=== PATIENT | female | born 1940 ===

== ENCOUNTER 2018-02-18 14:01 | Inpatient (IN) | payer MEDICARE, MEDICAID ==
[2018-02-18 14:01] VITALS: BMI 24.1
[2018-02-18] MEDS ORDERED: Lidocaine Hydrochloride 10 ML INJ ONE (14:08)
[2018-02-18] MEDS ORDERED: Morphine 4 MG/ML VIAL ONE (14:09)
[2018-02-18] MEDS ORDERED: Iodixanol 320 MG/ML 100 ML BOTTLE IV ONE (14:11)
[2018-02-18 14:13] LABS: BASO % 0.2 % (0.0-2.0); EOS # 0.1 K/uL (0.0-0.7); EOS % 1.2 % (0.0-4.0); HEMOGLOBIN 13.2 g/dL (11.0-16.0); LYMPH # 3.1 K/uL (1.0-4.3); LYMPH % 30.9 % (20.0-40.0); MEAN CELL VOLUME 86.7 fL (81.0-99.0); MEAN CORPUSCULAR HEMOGLOBIN 29.5 pg (27.0-31.0); MEAN PLATELET VOLUME 9.1 fL (7.2-11.7); MONO # 0.9 K/uL (0.0-0.8); MONO % 8.5 % (0.0-10.0); NEUT % 59.2 % (50.0-75.0); NRBC % 0.2 % (0.0-2.0); RBC 4.48 Mil/uL (3.80-5.20); RED CELL DISTRIBUTION WIDTH 13.2 % (11.5-14.5); WHITE BLOOD COUNT 10.1 K/uL (4.8-10.8)
--- NOTE | 2018-02-18 14:20 | C.PDOC ---
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 Patient was given Aspirin 324 mg PO by EMS. Upon arrival, patient is complaining of 10/10 chest pain, center of chest, no radiation. Patient states that she has associated diaphoresis and SOB. Patient has family history of UT. Of note, code heart was activated at 13:56. Time Seen by Provider: 02/18/18 14:18 Chief Complaint (Nursing): Chest Pain History Per: Patient History/Exam Limitations: no limitations Onset/Duration Of Symptoms: Hrs Current Symptoms Are (Timing): Still Present Severity: Moderate Past Medical History Reviewed: Historical Data, Nursing Documentation, Vital Signs Vital Signs: Last Vital Signs Temp 97.6 F 02/19/18 08:00 Pulse 53 L 02/19/18 09:00 Resp 16 02/19/18 09:00 BP 128/52 L 02/19/18 08:53 Pulse Ox 99 02/19/18 09:00 - Medical History PMH: HTN Denies: Depression, Chronic Kidney Disease Other Surgeries: Hx of surgeries Family History: States: No Known Family Hx - Social History Hx Alcohol Use: No Hx Substance Use: No - Immunization History Hx Tetanus Toxoid Vaccination: No Hx Influenza Vaccination: Yes Hx Pneumococcal Vaccination: No Review Of Systems Except As Marked, All Systems Reviewed And Found Negative. Constitutional: Negative for: Fever, Chills Cardiovascular: Positive for: Chest Pain. Negative for: Palpitations Respiratory: Positive for: Shortness of Breath Physical Exam - Physical Exam Appears: Other (clutching at chest) Skin: Normal Color, Warm, Dry Head: Atraumatic, Normacephalic Eye(s): bilateral: Normal Inspection, PERRL, EOMI Nose: Normal Oral Mucosa: Moist Neck: Supple Chest: Symmetrical Cardiovascular: Rhythm Regular Respiratory: Normal Breath Sounds, No Rales, No Rhonchi, No Wheezing Gastrointestinal/Abdominal: Normal Exam, Soft, No Tenderness, No Guarding, No Rebound Neurological/Psych: Oriented x3, Normal Speech ED Course And Treatment - Laboratory Results Result Diagrams: 02/19/18 06:21 02/19/18 06:14 ECG: Interpreted By Me, Viewed By Me ECG Rhythm: Sinus Rhythm Interpretation Of ECG: NSR with ST elevations in leads II,III, and avF, and reciprocal changes in leads and V2, STEMI Rate From EC O2 Sat by Pulse Oximetry: 100 (RA) Pulse Ox Interpretation: Normal Medical Decision Making Medical Decision Making: Plan: --Labs --EKG --CXR Updates: Patient was treated with Morphine IV. Patient rates the pain 01/03. 14:[address] Sorensen, senior it auditor. Dr. Sorensen recommends ordering Heparin 5,000 units and cardiac cath labs. Orders have been placed. Disposition - Disposition Disposition Time: 14:05 Condition: GOOD - Clinical Impression Clinical Impression: STEMI (ST elevation myocardial infarction) - Scribe Statement The provider has reviewed the documentation as recorded by the Sangitaibe Ghada Cruz Provider Attestation: All medical record entries made by the Sangitaibe were at my direction and personally dictated by me. I have reviewed the chart and agree that the record accurately reflects my personal performance of the history, physical exam, medical decision making, and the department course for this patient. I have also personally directed, reviewed, and agree with the discharge instructions and disposition.
[2018-02-18] MEDS ORDERED: Verapamil 2 ML ONE (14:25)
[2018-02-18] MEDS ORDERED: Nitroglycerin 50mg in D5W 50 MG/250 ML BOTTLE IV ONE (14:26)
[2018-02-18 14:29] LABS: INR 0.9; PROTHROMBIN TIME 10.2 SECONDS (9.7-12.2)
[2018-02-18 14:31] LABS: ALB/GLOB RATIO 1.2 (1.0-2.1); ALT/SGPT 35 U/L (9-52); AST/SGOT 35 U/L (14-36); BLOOD UREA NITROGEN 18 mg/dL (7-17); CALCIUM 9.7 mg/dl (8.6-10.4); GFR NON-AFRICAN AMERICAN > 60
[2018-02-18] MEDS ORDERED: Midazolam 2 MG/2 ML VIAL ONE (14:41)
[2018-02-18] MEDS ORDERED: Eptifibatide 20 mg/10mL Inj IVP ONE (14:48)
--- NOTE | 2018-02-18 15:35 | RAD ---
Date of service: 02/18/2018 PROCEDURE: CHEST RADIOGRAPH, 1 VIEW HISTORY: chest pain COMPARISON: None available. FINDINGS: LUNGS: No consolidation. Inspiration is shallow. PLEURA: No pneumothorax or pleural fluid seen. CARDIOVASCULAR: Shallow inspiration accentuating heart size. Study rotated towards the right as well. Atherosclerotic vascular calcifications present. No gross pulmonary venous congestion appreciated. OSSEOUS STRUCTURES: No significant abnormalities. VISUALIZED UPPER ABDOMEN: Normal. OTHER FINDINGS: None. IMPRESSION: Shallow lung inspiration. Limiting assessment of heart size. No consolidation or gross effusion
--- NOTE | 2018-02-18 15:55 | CP.PCM.HP ---
<Carmine Rangel - Last Filed: 02/18/18 17:18> Meds Allergies/Adverse Reactions: Allergies Allergy/AdvReac Type Severity Reaction Status Date / Time No Known Allergies Allergy Verified 02/18/18 14:09 Results - Vital Signs Recent Vital Signs: Last Vital Signs Temp 98 F 02/18/18 14:05 Pulse 63 02/18/18 14:05 Resp 18 02/18/18 14:05 BP 130/70 02/18/18 14:05 Pulse Ox 100 02/18/18 14:59 - Labs Result Diagrams: 02/18/18 14:09 02/18/18 14:09 Labs: Laboratory Results - last 24 hr 02/18/18 02/18/18 02/18/18 14:09 14:09 14:09 WBC 10.1 RBC 4.48 Hgb 13.2 Hct 38.9 MCV 86.7 MCH 29.5 MCHC 34.0 RDW 13.2 Plt Count 286 MPV 9.1 Neut % (Auto) 59.2 Lymph % (Auto) 30.9 [place] % (Auto) 8.5 Eos % (Auto) 1.2 Baso % (Auto) 0.2 Neut # (Auto) 6.0 Lymph # (Auto) 3.1 [place] # (Auto) 0.9 H Eos # (Auto) 0.1 Baso # (Auto) 0.0 PT INR APTT Sodium 138 Potassium 4.2 Chloride 103 Carbon Dioxide 23 Anion Gap 17 BUN 18 H Creatinine 0.6 L Est GFR ( Amer) > 60 Est GFR (Non-Af Amer) > 60 Random Glucose 214 H Calcium 9.7 Total Bilirubin 0.5 AST 35 ALT 35 Alkaline Phosphatase 128 H Troponin I Total Protein 7.2 Albumin 4.0 Globulin 3.2 Albumin/Globulin Ratio 1.2 Blood Type O POSITIVE Antibody Screen Negative 02/18/18 02/18/18 14:10 14:17 WBC RBC Hgb Hct MCV MCH MCHC RDW Plt Count MPV Neut % (Auto) Lymph % (Auto) [place] % (Auto) Eos % (Auto) Baso % (Auto) Neut # (Auto) Lymph # (Auto) [place] # (Auto) Eos # (Auto) Baso # (Auto) PT 10.2 INR 0.9 APTT 26 Sodium Potassium Chloride Carbon Dioxide Anion Gap BUN Creatinine Est GFR ( Amer) Est GFR (Non-Af Amer) Random Glucose Calcium Total Bilirubin AST ALT Alkaline Phosphatase Troponin I < 0.0120 Total Protein Albumin Globulin Albumin/Globulin Ratio Blood Type Antibody Screen Attending/Attestation - Attestation I have personally seen and examined this patient.: Yes I have fully participated in the care of the patient.: Yes I have reviewed all pertinent clinical information: Yes Notes (Text): 02/18/18 17:18 patient seen and examined Status post cardiac cath for ST elevation FL, And left circumflex stent placement 80% blockage of LAD Continue treatment as per cardiology <Ramos Hansen - Last Filed: 02/18/18 18:15> History of Present Illness - History of Present Illness History of Present Illness: CC: Code heart "chest pain" 77yo f with a PMHx of DM2, dementia, HTN with chest pain located midsternal radiating to the L shoulder and hand. This began at 1:19PM. At that time she ca lled her daughter and EMS was called and arrived at 1:55pm. She showed ST elevations on lead II, III and AVF on EKG. Of note Pt was recently hospitalized at [facility] for the same complaint and was placed in observation for 3 days and d/c home. Pt says shes been having episodes of chest pains SOB and fatigue with physical exertion since october. ROS: pos Chest pain, SOB, Sweating, fatigue with exertion (1 block), cold extremities neg orthostasis, dizziness, N/V, Fevers PMD: Dr Aburto PMH:DM2, dementia, HTN PSHx: rectal and Vaginal prolapse repair FH: Mom- DM2 and CAD, Dad- DM2 SH: denies ETOH, smoking or drug use Allergies: denies Home Meds: Glymeperide, Januvia, Losatran, Memantine and Donepazil Present on Admission - Present on Admission Any Indicators Present on Admission: No Review of Systems - Constitutional Constitutional: Chills, Excessive Sweating, Fatigue, Weakness - EENT Eyes: absent: Change in Vision Ears: absent: Disequilibrium Nose/Mouth/Throat: absent: Facial Pain, Neck Pain - Cardiovascular Cardiovascular: Chest Pain with Activity, Radiating Pain (L doyle and hand). absent: Chest Pain at Rest, Edema - Respiratory Respiratory: Dyspnea on Exertion. absent: Cough, Wheezing - Gastrointestinal Gastrointestinal: absent: Diarrhea, Dysphagia, Nausea, Vomiting - Genitourinary Genitourinary: absent: Dysuria - Musculoskeletal Musculoskeletal: Radiating Pain into Limb - Integumentary Integumentary: absent: New Lesions - Neurological Neurological: absent: Headaches, Loss of Vision, Syncope Past Patient History - Infectious Disease Hx of Infectious Diseases: None - Past Medical History & Family History Past Medical History?: Yes - Past Social History Smoking Status: Never Smoked Alcohol: None Drugs: Denies Home Situation {Lives}: Alone - CARDIAC Hx Hypertension: Yes - PULMONARY Hx Respiratory Disorders: No - NEUROLOGICAL Hx Neurological Disorder: No - HEENT Hx HEENT Problems: Yes Hx Cataracts: Yes Hx Glaucoma: Yes - RENAL Hx Chronic Kidney Disease: No - ENDOCRINE/METABOLIC Hx Endocrine Disorders: Yes Hx Diabetes Mellitus Type 2: Yes - HEMATOLOGICAL/ONCOLOGICAL Hx Blood Disorders: No - INTEGUMENTARY Hx Dermatological Problems: No - MUSCULOSKELETAL/RHEUMATOLOGICAL Hx Musculoskeletal Disorders: No - GASTROINTESTINAL Hx Gastrointestinal Disorders: No - GENITOURINARY/GYNECOLOGICAL Hx Genitourinary Disorders: No - PSYCHIATRIC Hx Depression: No Hx Substance Use: No - SURGICAL HISTORY Hx Surgeries: Yes Hx Cataract Extraction: Yes (left) Other/Comment: RECTAL PROLAPSE + uterus prolapse 2015 - ANESTHESIA Hx Anesthesia: Yes Hx Anesthesia Reactions: No Hx Malignant Hyperthermia: No Physical Exam - Constitutional Appears: Non-toxic, No Acute Distress - Head Exam Head Exam: ATRAUMATIC, NORMAL INSPECTION - Eye Exam Eye Exam: EOMI, Normal appearance - ENT Exam ENT Exam: Mucous Membranes Moist - Neck Exam Neck exam: Positive for: Normal Inspection. Negative for: Tenderness, Thyrome edwin Additional comments: no JVD - Respiratory Exam Respiratory Exam: Clear to Auscultation Bilateral, NORMAL BREATHING PATTERN. absent: Wheezes, Respiratory Distress - Cardiovascular Exam Cardiovascular Exam: RRR, +S1, +S2 - GI/Abdominal Exam GI & Abdominal Exam: absent: Distended Additional comments: R sided liver border palpated possible mild enlargement - Extremities Exam Additional comments: bilateral pedal pulses absent bilateral Lower Extremities cold to touch - Neurological Exam Neurological exam: Alert, CN II-XII Intact, Oriented x3 - Psychiatric Exam Psychiatric exam: Normal Affect, Normal Mood Results - Vital Signs Recent Vital Signs: Last Vital Signs Temp 98 F 02/18/18 14:05 Pulse 63 09/25/18 14:05 Resp 18 02/18/18 14:05 BP 130/70 02/18/18 14:05 Pulse Ox 100 02/18/18 14:59 - Labs Result Diagrams: 02/18/18 14:09 02/18/18 14:09 Labs: Laboratory Results - last 24 hr 02/18/18 02/18/18 02/18/18 14:09 14:09 14:09 WBC 10.1 RBC 4.48 Hgb 13.2 Hct 38.9 MCV 86.7 MCH 29.5 MCHC 34.0 RDW 13.2 Plt Count 286 MPV 9.1 Neut % (Auto) 59.2 Lymph % (Auto) 30.9 [place] % (Auto) 8.5 Eos % (Auto) 1.2 Baso % (Auto) 0.2 Neut # (Auto) 6.0 Lymph # (Auto) 3.1 [place] # (Auto) 0.9 H Eos # (Auto) 0.1 Baso # (Auto) 0.0 PT INR APTT Sodium 138 Potassium 4.2 Chloride 103 Carbon Dioxide 23 Anion Gap 17 BUN 18 H Creatinine 0.6 L Est GFR ( Amer) > 60 Est GFR (Non-Af Amer) > 60 Random Glucose 214 H Calcium 9.7 Total Bilirubin 0.5 AST 35 ALT 35 Alkaline Phosphatase 128 H Troponin I Total Protein 7.2 Albumin 4.0 Globulin 3.2 Albumin/Globulin Ratio 1.2 Blood Type O POSITIVE Antibody Screen Negative 02/18/18 02/18/18 14:10 14:17 WBC RBC Hgb Hct MCV MCH MCHC RDW Plt Count MPV Neut % (Auto) Lymph % (Auto) [place] % (Auto) Eos % (Auto) Baso % (Auto) Neut # (Auto) Lymph # (Auto) [place] # (Auto) Eos # (Auto) Baso # (Auto) PT 10.2 INR 0.9 APTT 26 Sodium Potassium Chloride Carbon Dioxide Anion Gap BUN Creatinine Est GFR ( Amer) Est GFR (Non-Af Amer) Random Glucose Calcium Total Bilirubin AST ALT Alkaline Phosphatase Troponin I < 0.0120 Total Protein Albumin Globulin Albumin/Globulin Ratio Blood Type Antibody Screen Assessment & Plan - Assessment and Plan (Free Text) Assessment: 77yo F with II, III, AVF STEMI, s/p cath with Dr Sorensen Plan: Neuro: -AAOx3 -monitor mental status Pulm: -Maintain spO2 >90% -Nasal cannula PRN CardioVasc: -II, II, AVF STEMI -s/p cath w/ Dr Sorensen -ASA 81mg PO daily -Toprol XL 25mg PO daily -Brillinta 90mg PO Daily -Rosuvastatin 40mg PO HS -currently hemodynamically stable Heme: -Monitor H/H Renal: -monitor I&O -monitor and repleat electrolytes Endo: -Maintain euglycemia 140-180 blood sugar GI: -ppi not indicated at this time -NPO after midnight -HHD ID: -Afebrile -no leukocytosis DVT PPX: -SCDs
[2018-02-18] MEDS ORDERED: Sodium Chloride 0.9% 500 ML IV SCH (18:31)
[2018-02-18] MEDS ORDERED: Sodium Chloride 0.9% 1,000 ML IV SCH (19:58)
--- NOTE | 2018-02-19 01:59 | CARDCATH ---
PROCEDURE DATE: 02/18/2018 INDICATIONS: Lo Schmitt is a 77-year-old female who presented to [facility] Emergency Room for ST-elevation FL. The patient emergently was brought to the cathode builder, underwent emergent cardiac catheterization. PROCEDURE PERFORMED: Emergent left heart catheterization with selective left and right coronary angiograms, left ventriculogram, PTCA stenting of 100% occluded left circumflex coronary artery, deployment of 3.5 x 23-mm Xience drug-eluting stent, lesion reduction from 100% down to 0% ANNY-3 flow, 6-Luxembour[place] right femoral arterial access, Angio-Seal vascular closure device. ANGIOGRAPHIC FINDINGS: Left main is a large sized vessel, mid 100% occluded, LAD proximal 40, mid 85% stenosis, two small diagonals, RCA codominant vessel, proximal 0%, mid 30%, EF normal. EDP 23. IMPRESSION: Successful revascularization of mid left circumflex, 100% thrombotic occlusion, deployment of 3.5 x 23 mm Xience drug-eluting stent. Regeneration of 0% ANNY 3 flow, 6 Luxembourger right femoral arterial access, Angio-Seal closure device for hemostasis. RECOMMENDATIONS: The patient is to be kept on dual antiplatelet therapy, guideline-directed therapy for CAD, beta-blockers, statin and nitrates. The patient is to have staged intervention of the mid LAD high-grade stenosis in 24 to 48 hours in [facility]. Ryan Sorensen MD
--- NOTE | 2018-02-19 02:48 | CON ---
DATE: 02/18/2018 CARDIOLOGY CONSULTATION REASON FOR CONSULTATION: ST-elevation IL. HISTORY OF PRESENT ILLNESS: Ms. Lo Schmitt is a 77-year-old female with past medical history significant for hypertension and diabetes mellitus who was brought to [facility] for evaluation of symptoms of chest pain. She was found to have ST-elevation IL on her initial EKG done in the field which was activated. She underwent an emergent cardiac catheterization with PTCA stenting of mid left circumflex 100% thrombotic occlusion, deployment of one drug-eluting stent. The patient post-procedure remained chest pain free. PAST MEDICAL HISTORY: As stated above, significant for hypertension, diabetes, and hyperlipidemia. PAST SURGICAL HISTORY: Noncontributory. ALLERGIES: NO KNOWN DRUG ALLERGIES. HOME MEDICATIONS: As listed below. REVIEW OF SYSTEMS: Positive for chest pain, shortness of breath. PHYSICAL EXAMINATION: GENERAL: Alert, oriented x3, mild distress from post-IL chest pain. VITAL SIGNS: Post-cath the patient's vitals, blood pressure 107/59 with a heart rate of 64, respiratory rate 18. HEENT: Anicteric. Pupils equal and reactive to light. Extraocular movements intact. NECK: Supple. No JVD. LUNGS: Clear to auscultation bilaterally. HEART: Regular rate and rhythm. Normal S1, positive S2, loud systolic murmur at the left sternal border. ABDOMEN: Soft, nontender, nondistended. EXTREMITIES: No clubbing, cyanosis, or edema. IMPRESSION: 1. ST-elevation myocardial infarction. 2. Hypertension. 3. Diabetes mellitus. 4. Coronary artery disease. 5. Dyslipidemia. RECOMMENDATIONS: The patient is to be kept in the ICU under observation for post-PCI revascularization of mid circumflex 100% occluded vessel. The patient is to be kept on dual antiplatelet therapy with aspirin and Brilinta. Continue the patient on low-dose Toprol-XL 25 mg p.o. daily, low-dose statins, and diabetic management as per primary team. The patient is to undergo staged intervention of the mid LAD high-grade stenosis in 24 to 48 hours depending on the renal function. Ryan Sorensen MD
[2018-02-19 06:30] LABS: BASO % 0.3 % (0.0-2.0); EOS # 0.1 K/uL (0.0-0.7); EOS % 0.6 % (0.0-4.0); LYMPH # 1.4 K/uL (1.0-4.3); LYMPH % 13.9 % (20.0-40.0); MEAN CELL VOLUME 86.6 fL (81.0-99.0); MEAN CORPUSCULAR HEMOGLOBIN 29.9 pg (27.0-31.0); MEAN CORPUSCULAR HGB CONC 34.6 g/dL (33.0-37.0); MEAN PLATELET VOLUME 9.2 fL (7.2-11.7); MONO # 0.7 K/uL (0.0-0.8); MONO % 7.1 % (0.0-10.0); NEUT # 7.9 K/uL (1.8-7.0); NEUT % 78.1 % (50.0-75.0); NRBC % 0.1 % (0.0-2.0); RBC 4.33 Mil/uL (3.80-5.20); RED CELL DISTRIBUTION WIDTH 13.6 % (11.5-14.5); WHITE BLOOD COUNT 10.1 K/uL (4.8-10.8)
[2018-02-19 06:40] LABS: ALB/GLOB RATIO 1.2 (1.0-2.1); ALBUMIN 3.6 g/dL (3.5-5.0); ALT/SGPT 57 U/L (9-52); AST/SGOT 148 U/L (14-36); BLOOD UREA NITROGEN 14 mg/dL (7-17); CALCIUM 9.1 mg/dl (8.6-10.4); GFR NON-AFRICAN AMERICAN > 60
[2018-02-19 08:14] LABS: HDL CHOLESTEROL 42 mg/dL (30-70)
[2018-02-19 08:25] LABS: LDL CHOLESTEROL 67 mg/dL (0-129)
[2018-02-19] MEDS: Carboxymethylcellulose 1% Ophth Soln OU SCH ×2 (10:26→21:36)
[2018-02-19] MEDS: Metoprolol Succinate 25 mg XL Tab PO SCH (10:28)
--- NOTE | 2018-02-19 10:50 | CP.CCUPN ---
Addendum entered and electronically signed by Ramos Hansen DO 02/19/18 16:18: Endo -gluc 200 -metformin 250mg PO -glyburide 1g PO Original Note: <Ramos Hansen - Last Filed: 02/19/18 10:48> CCU Subjective - Physician Review Subjective (Free Text): 02/19/18 10:48 Pt seen and examined at bedside. Pt denies any acute events overnight. Pt complains of mild chest discomfort this AM. Pt denies n/v f/c radiating pains dizziness headache palps CCU Objective - Vital Signs / Intake & Output Vital Signs (Last 4 hours): Vital Signs Temp Pulse Resp BP Pulse Ox 02/19/18 09:00 53 L 16 99 02/19/18 08:53 53 L 17 128/52 L 98 02/19/18 08:08 130/60 02/19/18 08:00 97.6 F 02/19/18 07:00 59 L 22 98 02/19/18 06:53 56 L 18 126/56 L 97 Intake and Output (Last 8hrs): Intake & Output 02/18/18 02/19/18 02/19/18 22:59 06:59 14:59 Intake Total 525 650 150 Output Total 750 900 Balance -225 -250 150 Weight 120 lb 14.4 oz Intake: Intake, IV Amount 200 400 150 Left Antecubital 200 400 150 Oral 325 250 0 Output: Urine 750 900 Urine, Voided 750 900 Other: # Voids Urine, Voided 1 0 # Bowel Movements 0 0 0 - Medications Active Medications: Active Medications Generic Name Dose Route Start Last Admin Trade Name Rajatq PRN Reason Stop Dose Admin Artificial Tears 0 ml 02/19/18 10:00 02/19/18 10:26 Artificial Tears Refresh Celluvisc OU 1 drop Q12 VALERY Administration Aspirin 81 mg 02/19/18 10:00 02/19/18 10:27 Aspirin Chewable PO 81 mg DAILY VALERY Administration Heparin Sodium (Porcine) 5,000 units 02/18/18 22:00 02/19/18 10:27 Heparin SC 5,000 units Q12 VALERY Administration Sodium Chloride 1,000 mls @ 50 mls/hr 02/18/18 19:58 02/18/18 20:03 Sodium Chloride 0.9% IV 50 mls/hr .Q20H VALERY Administration Metoprolol Succinate 25 mg 02/19/18 10:00 02/19/18 10:28 Toprol Xl PO 25 mg DAILY VALERY Administration Ticagrelor 90 mg 02/19/18 10:00 02/19/18 10:27 Brilinta PO 90 mg DAILY VALERY Administration Timolol Maleate 1 drop 02/19/18 10:00 02/19/18 10:28 Timoptic 0.5% Ophth Soln OU 1 drop BID VALERY Administration - Patient Studies Lab Studies: Lab Studies 02/19/18 02/19/18 02/19/18 Range/Units 07:30 06:21 06:14 WBC 10.1 (4.8-10.8) K/uL RBC 4.33 (3.80-5.20) Mil/uL Hgb 13.0 (11.0-16.0) g/dL Hct 37.5 (34.0-47.0) % MCV 86.6 (81.0-99.0) fL MCH 29.9 (27.0-31.0) pg MCHC 34.6 (33.0-37.0) g/dL RDW 13.6 (11.5-14.5) % Plt Count 245 (130-400) K/uL MPV 9.2 (7.2-11.7) fL Neut % (Auto) 78.1 H (50.0-75.0) % Lymph % (Auto) 13.9 L (20.0-40.0) % [place] % (Auto) 7.1 (0.0-10.0) % Eos % (Auto) 0.6 (0.0-4.0) % Baso % (Auto) 0.3 (0.0-2.0) % Neut # (Auto) 7.9 H (1.8-7.0) K/uL Lymph # (Auto) 1.4 (1.0-4.3) K/uL [place] # (Auto) 0.7 (0.0-0.8) K/uL Eos # (Auto) 0.1 (0.0-0.7) K/uL Baso # (Auto) 0.0 (0.0-0.2) K/uL PT (9.7-12.2) SECONDS INR APTT (21-34) SECONDS Sodium 137 (132-148) mmol/L Potassium 3.8 (3.6-5.2) mmol/L Chloride 104 (98-107) mmol/L Carbon Dioxide 26 (22-30) mmol/L Anion Gap 11 (10-20) BUN 14 (7-17) mg/dL Creatinine 0.4 L (0.7-1.2) mg/dL Est GFR ( Amer) > 60 Est GFR (Non-Af Amer) > 60 POC Glucose (mg/dL) 193 H (65-110) mg/dL Random Glucose 182 H (65-105) mg/dL Calcium 9.1 (8.6-10.4) mg/dl Phosphorus 3.3 (2.5-4.5) mg/dL Magnesium 1.7 (1.6-2.3) mg/dL Total Bilirubin 0.5 (0.2-1.3) mg/dL AST 148 H D (14-36) U/L ALT 57 H D (9-52) U/L Alkaline Phosphatase 88 (38-126) U/L Troponin I (0.00-0.120) ng/mL Total Protein 6.6 (6.3-8.3) g/dL Albumin 3.6 (3.5-5.0) g/dL Globulin 3.0 (2.2-3.9) gm/dL Albumin/Globulin Ratio 1.2 (1.0-2.1) Triglycerides 175 H (0-149) mg/dL Cholesterol 142 (0-199) mg/dL LDL Cholesterol Direct 67 (0-129) mg/dL HDL Cholesterol 42 (30-70) mg/dL Blood Type Antibody Screen 02/18/18 02/18/18 02/18/18 Range/Units 22:18 14:17 14:10 WBC (4.8-10.8) K/uL RBC (3.80-5.20) Mil/uL Hgb (11.0-16.0) g/dL Hct (34.0-47.0) % MCV (81.0-99.0) fL MCH (27.0-31.0) pg MCHC (33.0-37.0) g/dL RDW (11.5-14.5) % Plt Count (130-400) K/uL MPV (7.2-11.7) fL Neut % (Auto) (50.0-75.0) % Lymph % (Auto) (20.0-40.0) % [place] % (Auto) (0.0-10.0) % Eos % (Auto) (0.0-4.0) % Baso % (Auto) (0.0-2.0) % Neut # (Auto) (1.8-7.0) K/uL Lymph # (Auto) (1.0-4.3) K/uL [place] # (Auto) (0.0-0.8) K/uL Eos # (Auto) (0.0-0.7) K/uL Baso # (Auto) (0.0-0.2) K/uL PT 10.2 (9.7-12.2) SECONDS INR 0.9 APTT 26 (21-34) SECONDS Sodium (132-148) mmol/L Potassium (3.6-5.2) mmol/L Chloride (98-107) mmol/L Carbon Dioxide (22-30) mmol/L Anion Gap (10-20) BUN (7-17) mg/dL Creatinine (0.7-1.2) mg/dL Est GFR ( Amer) Est GFR (Non-Af Amer) POC Glucose (mg/dL) 187 H (65-110) mg/dL Random Glucose (65-105) mg/dL Calcium (8.6-10.4) mg/dl Phosphorus (2.5-4.5) mg/dL Magnesium (1.6-2.3) mg/dL Total Bilirubin (0.2-1.3) mg/dL AST (14-36) U/L ALT (9-52) U/L Alkaline Phosphatase (38-126) U/L Troponin I < 0.0120 (0.00-0.120) ng/mL Total Protein (6.3-8.3) g/dL Albumin (3.5-5.0) g/dL Globulin (2.2-3.9) gm/dL Albumin/Globulin Ratio (1.0-2.1) Triglycerides (0-149) mg/dL Cholesterol (0-199) mg/dL LDL Cholesterol Direct (0-129) mg/dL HDL Cholesterol (30-70) mg/dL Blood Type Antibody Screen 02/18/18 02/18/18 02/18/18 Range/Units 14:09 14:09 14:09 WBC 10.1 (4.8-10.8) K/uL RBC 4.48 (3.80-5.20) Mil/uL Hgb 13.2 (11.0-16.0) g/dL Hct 38.9 (34.0-47.0) % MCV 86.7 (81.0-99.0) fL MCH 29.5 (27.0-31.0) pg MCHC 34.0 (33.0-37.0) g/dL RDW 13.2 (11.5-14.5) % Plt Count 286 (130-400) K/uL MPV 9.1 (7.2-11.7) fL Neut % (Auto) 59.2 (50.0-75.0) % Lymph % (Auto) 30.9 (20.0-40.0) % [place] % (Auto) 8.5 (0.0-10.0) % Eos % (Auto) 1.2 (0.0-4.0) % Baso % (Auto) 0.2 (0.0-2.0) % Neut # (Auto) 6.0 (1.8-7.0) K/uL Lymph # (Auto) 3.1 (1.0-4.3) K/uL [place] # (Auto) 0.9 H (0.0-0.8) K/uL Eos # (Auto) 0.1 (0.0-0.7) K/uL Baso # (Auto) 0.0 (0.0-0.2) K/uL PT (9.7-12.2) SECONDS INR APTT (21-34) SECONDS Sodium 138 (132-148) mmol/L Potassium 4.2 (3.6-5.2) mmol/L Chloride 103 (98-107) mmol/L Carbon Dioxide 23 (22-30) mmol/L Anion Gap 17 (10-20) BUN 18 H (7-17) mg/dL Creatinine 0.6 L (0.7-1.2) mg/dL Est GFR ( Amer) > 60 Est GFR (Non-Af Amer) > 60 POC Glucose (mg/dL) (65-110) mg/dL Random Glucose 214 H (65-105) mg/dL Calcium 9.7 (8.6-10.4) mg/dl Phosphorus (2.5-4.5) mg/dL Magnesium (1.6-2.3) mg/dL Total Bilirubin 0.5 (0.2-1.3) mg/dL AST 35 (14-36) U/L ALT 35 (9-52) U/L Alkaline Phosphatase 128 H (38-126) U/L Troponin I (0.00-0.120) ng/mL Total Protein 7.2 (6.3-8.3) g/dL Albumin 4.0 (3.5-5.0) g/dL Globulin 3.2 (2.2-3.9) gm/dL Albumin/Globulin Ratio 1.2 (1.0-2.1) Triglycerides (0-149) mg/dL Cholesterol (0-199) mg/dL LDL Cholesterol Direct (0-129) mg/dL HDL Cholesterol (30-70) mg/dL Blood Type O POSITIVE Antibody Screen Negative Laboratory Results - last 24 hr 02/18/18 02/18/18 02/18/18 14:09 14:09 14:09 WBC 10.1 RBC 4.48 Hgb 13.2 Hct 38.9 MCV 86.7 MCH 29.5 MCHC 34.0 RDW 13.2 Plt Count 286 MPV 9.1 Neut % (Auto) 59.2 Lymph % (Auto) 30.9 [place] % (Auto) 8.5 Eos % (Auto) 1.2 Baso % (Auto) 0.2 Neut # (Auto) 6.0 Lymph # (Auto) 3.1 [place] # (Auto) 0.9 H Eos # (Auto) 0.1 Baso # (Auto) 0.0 PT INR APTT Sodium 138 Potassium 4.2 Chloride 103 Carbon Dioxide 23 Anion Gap 17 BUN 18 H Creatinine 0.6 L Est GFR ( Amer) > 60 Est GFR (Non-Af Amer) > 60 POC Glucose (mg/dL) Random Glucose 214 H Calcium 9.7 Phosphorus Magnesium Total Bilirubin 0.5 AST 35 ALT 35 Alkaline Phosphatase 128 H Troponin I Total Protein 7.2 Albumin 4.0 Globulin 3.2 Albumin/Globulin Ratio 1.2 Triglycerides Cholesterol LDL Cholesterol Direct HDL Cholesterol Blood Type O POSITIVE Antibody Screen Negative 02/18/18 02/18/18 02/18/18 14:10 14:17 22:18 WBC RBC Hgb Hct MCV MCH MCHC RDW Plt Count MPV Neut % (Auto) Lymph % (Auto) [place] % (Auto) Eos % (Auto) Baso % (Auto) Neut # (Auto) Lymph # (Auto) [place] # (Auto) Eos # (Auto) Baso # (Auto) PT 10.2 INR 0.9 APTT 26 Sodium Potassium Chloride Carbon Dioxide Anion Gap BUN Creatinine Est GFR ( Amer) Est GFR (Non-Af Amer) POC Glucose (mg/dL) 187 H Random Glucose Calcium Phosphorus Magnesium Total Bilirubin AST ALT Alkaline Phosphatase Troponin I < 0.0120 Total Protein Albumin Globulin Albumin/Globulin Ratio Triglycerides Cholesterol LDL Cholesterol Direct HDL Cholesterol Blood Type Antibody Screen 02/19/18 02/19/18 02/19/18 06:14 06:21 07:30 WBC 10.1 RBC 4.33 Hgb 13.0 Hct 37.5 MCV 86.6 MCH 29.9 MCHC 34.6 RDW 13.6 Plt Count 245 MPV 9.2 Neut % (Auto) 78.1 H Lymph % (Auto) 13.9 L [place] % (Auto) 7.1 Eos % (Auto) 0.6 Baso % (Auto) 0.3 Neut # (Auto) 7.9 H Lymph # (Auto) 1.4 [place] # (Auto) 0.7 Eos # (Auto) 0.1 Baso # (Auto) 0.0 PT INR APTT Sodium 137 Potassium 3.8 Chloride 104 Carbon Dioxide 26 Anion Gap 11 BUN 14 Creatinine 0.4 L Est GFR ( Amer) > 60 Est GFR (Non-Af Amer) > 60 POC Glucose (mg/dL) 193 H Random Glucose 182 H Calcium 9.1 Phosphorus 3.3 Magnesium 1.7 Total Bilirubin 0.5 AST 148 H D ALT 57 H D Alkaline Phosphatase 88 Troponin I Total Protein 6.6 Albumin 3.6 Globulin 3.0 Albumin/Globulin Ratio 1.2 Triglycerides 175 H Cholesterol 142 LDL Cholesterol Direct 67 HDL Cholesterol 42 Blood Type Antibody Screen EKG/Cardiology Studies: Cardiology / EKG Studies 02/18/18 14:04 ELECTROCARDIOGRAM Stat Comment: Mode Of Transportation: BED Reason For Exam: chest pain 02/18/18 14:05 ELECTROCARDIOGRAM Stat Comment: Mode Of Transportation: BED Reason For Exam: chest pain 02/19/18 07:08 EKG [ELECTROCARDIOGRAM] Stat Comment: Mode Of Transportation: Reason For Exam: chest discomfort Fingerstick Blood Sugar Results: 187 Critical Care Progress Note - Nutrition Nutrition: Nutrition Category Date Time Status Heart Healthy Diet [DIET] Diets 02/18/18 Dinner Active Assessment/Plan - Assessment and Plan (Free Text) Plan: 77yo F with II, III, AVF STEMI, s/p cath and stent of LCX with Dr Sorensen 02/18. [place] [facility] [place] Plan: Neuro: -AAOx3 -monitor mental status Pulm: -Maintain spO2 >90% -Nasal cannula PRN CardioVasc: -II, II, AVF STEMI -s/p cath w/ Dr Sorensen -ASA 81mg PO daily -Toprol XL 25mg PO daily -Brillinta 90mg PO Daily -Rosuvastatin 40mg PO HS d/c LFTs elevated -currently hemodynamically stable Heme: -Monitor H/H Renal: -monitor I&O -monitor and repleat electrolytes Endo: -Maintain euglycemia 140-180 blood sugar GI: -ppi not indicated at this time -NPO after midnight -HHD ID: -Afebrile -no leukocytosis DVT PPX: -SCDs <Carmine Rangel - Last Filed: 02/19/18 17:36> CCU Subjective - Physician Review Critical Care Time Spent (in minutes): 30 CCU Objective - Vital Signs / Intake & Output Vital Signs (Last 4 hours): Vital Signs Temp Pulse Resp BP Pulse Ox 02/19/18 16:00 97.8 F 60 20 94 L 02/19/18 15:53 64 24 115/52 L 94 L 02/19/18 15:00 62 15 96 02/19/18 14:55 64 19 124/67 95 02/19/18 14:00 57 L 17 02/19/18 13:53 58 L 14 133/59 L 97 Intake and Output (Last 8hrs): Intake & Output 02/19/18 02/19/18 02/19/18 06:59 14:59 22:59 Intake Total 650 710 0 Output Total 900 350 100 Balance -250 360 -100 Weight 120 lb 14.4 oz Intake: Intake, IV Amount 400 350 Left Antecubital 400 350 Oral 250 360 0 Output: Urine 900 350 100 Urine, Voided 900 350 100 Other: # Voids Urine, Voided 1 0 # Bowel Movements 0 0 - Medications Active Medications: Active Medications Generic Name Dose Route Start Last Admin Trade Name Freq PRN Reason Stop Dose Admin Artificial Tears 0 ml 02/19/18 10:00 02/19/18 10:26 Artificial Tears Refresh Celluvisc OU 1 drop Q12 VALERY Administration Aspirin 81 mg 02/19/18 10:00 02/19/18 10:27 Aspirin Chewable PO 81 mg DAILY VALERY Administration Glimepiride 1 mg 02/19/18 16:30 02/19/18 16:47 Amaryl PO 1 mg DAILY VALERY Administration Heparin Sodium (Porcine) 5,000 units 02/18/18 22:00 02/19/18 10:27 Heparin SC 5,000 units Q12 VALERY Administration Metformin HCl 250 mg 02/19/18 18:00 02/19/18 16:47 Glucophage PO 250 mg BID VALERY Administration Metoprolol Succinate 25 mg 02/19/18 10:00 02/19/18 10:28 Toprol Xl PO 25 mg DAILY VALERY Administration Ticagrelor 90 mg 02/19/18 10:00 02/19/18 10:27 Brilinta PO 90 mg DAILY VALERY Administration Timolol Maleate 1 drop 02/19/18 10:00 02/19/18 10:28 Timoptic 0.5% Ophth Soln OU 1 drop BID VALERY Administration - Patient Studies Lab Studies: Lab Studies 02/19/18 02/19/18 02/19/18 Range/Units 16:10 11:18 07:30 WBC (4.8-10.8) K/uL RBC (3.80-5.20) Mil/uL Hgb (11.0-16.0) g/dL Hct (34.0-47.0) % MCV (81.0-99.0) fL MCH (27.0-31.0) pg MCHC (33.0-37.0) g/dL RDW (11.5-14.5) % Plt Count (130-400) K/uL MPV (7.2-11.7) fL Neut % (Auto) (50.0-75.0) % Lymph % (Auto) (20.0-40.0) % [place] % (Auto) (0.0-10.0) % Eos % (Auto) (0.0-4.0) % Baso % (Auto) (0.0-2.0) % Neut # (Auto) (1.8-7.0) K/uL Lymph # (Auto) (1.0-4.3) K/uL [place] # (Auto) (0.0-0.8) K/uL Eos # (Auto) (0.0-0.7) K/uL Baso # (Auto) (0.0-0.2) K/uL Sodium (132-148) mmol/L Potassium (3.6-5.2) mmol/L Chloride (98-107) mmol/L Carbon Dioxide (22-30) mmol/L Anion Gap (10-20) BUN (7-17) mg/dL Creatinine (0.7-1.2) mg/dL Est GFR ( Amer) Est GFR (Non-Af Amer) POC Glucose (mg/dL) 255 H 198 H 193 H (65-110) mg/dL Random Glucose (65-105) mg/dL Calcium (8.6-10.4) mg/dl Phosphorus (2.5-4.5) mg/dL Magnesium (1.6-2.3) mg/dL Total Bilirubin (0.2-1.3) mg/dL AST (14-36) U/L ALT (9-52) U/L Alkaline Phosphatase (38-126) U/L Total Protein (6.3-8.3) g/dL Albumin (3.5-5.0) g/dL Globulin (2.2-3.9) gm/dL Albumin/Globulin Ratio (1.0-2.1) Triglycerides (0-149) mg/dL Cholesterol (0-199) mg/dL LDL Cholesterol Direct (0-129) mg/dL HDL Cholesterol (30-70) mg/dL 02/19/18 02/19/18 02/18/18 Range/Units 06:21 06:14 22:18 WBC 10.1 (4.8-10.8) K/uL RBC 4.33 (3.80-5.20) Mil/uL Hgb 13.0 (11.0-16.0) g/dL Hct 37.5 (34.0-47.0) % MCV 86.6 (81.0-99.0) fL MCH 29.9 (27.0-31.0) pg MCHC 34.6 (33.0-37.0) g/dL RDW 13.6 (11.5-14.5) % Plt Count 245 (130-400) K/uL MPV 9.2 (7.2-11.7) fL Neut % (Auto) 78.1 H (50.0-75.0) % Lymph % (Auto) 13.9 L (20.0-40.0) % [place] % (Auto) 7.1 (0.0-10.0) % Eos % (Auto) 0.6 (0.0-4.0) % Baso % (Auto) 0.3 (0.0-2.0) % Neut # (Auto) 7.9 H (1.8-7.0) K/uL Lymph # (Auto) 1.4 (1.0-4.3) K/uL [place] # (Auto) 0.7 (0.0-0.8) K/uL Eos # (Auto) 0.1 (0.0-0.7) K/uL Baso # (Auto) 0.0 (0.0-0.2) K/uL Sodium 137 (132-148) mmol/L Potassium 3.8 (3.6-5.2) mmol/L Chloride 104 (98-107) mmol/L Carbon Dioxide 26 (22-30) mmol/L Anion Gap 11 (10-20) BUN 14 (7-17) mg/dL Creatinine 0.4 L (0.7-1.2) mg/dL Est GFR ( Amer) > 60 Est GFR (Non-Af Amer) > 60 POC Glucose (mg/dL) 187 H (65-110) mg/dL Random Glucose 182 H (65-105) mg/dL Calcium 9.1 (8.6-10.4) mg/dl Phosphorus 3.3 (2.5-4.5) mg/dL Magnesium 1.7 (1.6-2.3) mg/dL Total Bilirubin 0.5 (0.2-1.3) mg/dL AST 148 H D (14-36) U/L ALT 57 H D (9-52) U/L Alkaline Phosphatase 88 (38-126) U/L Total Protein 6.6 (6.3-8.3) g/dL Albumin 3.6 (3.5-5.0) g/dL Globulin 3.0 (2.2-3.9) gm/dL Albumin/Globulin Ratio 1.2 (1.0-2.1) Triglycerides 175 H (0-149) mg/dL Cholesterol 142 (0-199) mg/dL LDL Cholesterol Direct 67 (0-129) mg/dL HDL Cholesterol 42 (30-70) mg/dL 02/18/18 Range/Units 14:10 WBC (4.8-10.8) K/uL RBC (3.80-5.20) Mil/uL Hgb (11.0-16.0) g/dL Hct (34.0-47.0) % MCV (81.0-99.0) fL MCH (27.0-31.0) pg MCHC (33.0-37.0) g/dL RDW (11.5-14.5) % Plt Count (130-400) K/uL MPV (7.2-11.7) fL Neut % (Auto) (50.0-75.0) % Lymph % (Auto) (20.0-40.0) % [place] % (Auto) (0.0-10.0) % Eos % (Auto) (0.0-4.0) % Baso % (Auto) (0.0-2.0) % Neut # (Auto) (1.8-7.0) K/uL Lymph # (Auto) (1.0-4.3) K/uL [place] # (Auto) (0.0-0.8) K/uL Eos # (Auto) (0.0-0.7) K/uL Baso # (Auto) (0.0-0.2) K/uL Sodium (132-148) mmol/L Potassium (3.6-5.2) mmol/L Chloride (98-107) mmol/L Carbon Dioxide (22-30) mmol/L Anion Gap (10-20) BUN (7-17) mg/dL Creatinine (0.7-1.2) mg/dL Est GFR ( Amer) Est GFR (Non-Af Amer) POC Glucose (mg/dL) 187 H (65-110) mg/dL Random Glucose (65-105) mg/dL Calcium (8.6-10.4) mg/dl Phosphorus (2.5-4.5) mg/dL Magnesium (1.6-2.3) mg/dL Total Bilirubin (0.2-1.3) mg/dL AST (14-36) U/L ALT (9-52) U/L Alkaline Phosphatase (38-126) U/L Total Protein (6.3-8.3) g/dL Albumin (3.5-5.0) g/dL Globulin (2.2-3.9) gm/dL Albumin/Globulin Ratio (1.0-2.1) Triglycerides (0-149) mg/dL Cholesterol (0-199) mg/dL LDL Cholesterol Direct (0-129) mg/dL HDL Cholesterol (30-70) mg/dL Laboratory Results - last 24 hr 02/18/18 02/18/18 02/19/18 14:10 22:18 06:14 WBC RBC Hgb Hct MCV MCH MCHC RDW Plt Count MPV Neut % (Auto) Lymph % (Auto) [place] % (Auto) Eos % (Auto) Baso % (Auto) Neut # (Auto) Lymph # (Auto) [place] # (Auto) Eos # (Auto) Baso # (Auto) Sodium 137 Potassium 3.8 Chloride 104 Carbon Dioxide 26 Anion Gap 11 BUN 14 Creatinine 0.4 L Est GFR ( Amer) > 60 Est GFR (Non-Af Amer) > 60 POC Glucose (mg/dL) 187 H 187 H Random Glucose 182 H Calcium 9.1 Phosphorus 3.3 Magnesium 1.7 Total Bilirubin 0.5 AST 148 H D ALT 57 H D Alkaline Phosphatase 88 Total Protein 6.6 Albumin 3.6 Globulin 3.0 Albumin/Globulin Ratio 1.2 Triglycerides 175 H Cholesterol 142 LDL Cholesterol Direct 67 HDL Cholesterol 42 02/19/18 02/19/18 02/19/18 06:21 07:30 11:18 WBC 10.1 RBC 4.33 Hgb 13.0 Hct 37.5 MCV 86.6 MCH 29.9 MCHC 34.6 RDW 13.6 Plt Count 245 MPV 9.2 Neut % (Auto) 78.1 H Lymph % (Auto) 13.9 L [place] % (Auto) 7.1 Eos % (Auto) 0.6 Baso % (Auto) 0.3 Neut # (Auto) 7.9 H Lymph # (Auto) 1.4 [place] # (Auto) 0.7 Eos # (Auto) 0.1 Baso # (Auto) 0.0 Sodium Potassium Chloride Carbon Dioxide Anion Gap BUN Creatinine Est GFR ( Amer) Est GFR (Non-Af Amer) POC Glucose (mg/dL) 193 H 198 H Random Glucose Calcium Phosphorus Magnesium Total Bilirubin AST ALT Alkaline Phosphatase Total Protein Albumin Globulin Albumin/Globulin Ratio Triglycerides Cholesterol LDL Cholesterol Direct HDL Cholesterol 02/19/18 16:10 WBC RBC Hgb Hct MCV MCH MCHC RDW Plt Count MPV Neut % (Auto) Lymph % (Auto) [place] % (Auto) Eos % (Auto) Baso % (Auto) Neut # (Auto) Lymph # (Auto) [place] # (Auto) Eos # (Auto) Baso # (Auto) Sodium Potassium Chloride Carbon Dioxide Anion Gap BUN Creatinine Est GFR ( Amer) Est GFR (Non-Af Amer) POC Glucose (mg/dL) 255 H Random Glucose Calcium Phosphorus Magnesium Total Bilirubin AST ALT Alkaline Phosphatase Total Protein Albumin Globulin Albumin/Globulin Ratio Triglycerides Cholesterol LDL Cholesterol Direct HDL Cholesterol EKG/Cardiology Studies: Cardiology / EKG Studies 02/19/18 07:08 EKG [ELECTROCARDIOGRAM] Stat Comment: Mode Of Transportation: Reason For Exam: chest discomfort Critical Care Progress Note - Nutrition Nutrition: Nutrition Category Date Time Status Heart Healthy Diet [DIET] Diets 02/19/18 Lunch Active Attending/Attestation - Attestation I have personally seen and examined this patient.: Yes I have fully participated in the care of the patient.: Yes I have reviewed all pertinent clinical information: Yes Notes (Text): 02/19/18 17:35 Patient seen and examined Status post cardiac cath and PCI of left circumflex Continue present treatment Cardiac cath as outpatient for LAD
--- NOTE | 2018-02-19 11:01 | RAD ---
Date of service: 02/19/2018 HISTORY: chest discomfort s/p cath and LCX stent yesterday COMPARISON: No prior. FINDINGS: LUNGS: No active pulmonary disease. PLEURA: No significant pleural effusion identified, no pneumothorax apparent. CARDIOVASCULAR: No radiographic findings to suggest acute or significant cardiovascular disease. OSSEOUS STRUCTURES: No significant abnormalities. VISUALIZED UPPER ABDOMEN: Normal. OTHER FINDINGS: None. IMPRESSION: No active disease.
--- NOTE | 2018-02-19 11:46 | CARD ---
APPROVED REPORT Date of service: 02/18/2018 EKG Measurement Heart [id number] <Conclusion> Sinus bradycardia Possible Left atrial enlargement ST elevation, consider inferolateral injury or acute infarct ACUTE [place] / STEMI Abnormal ECG
--- NOTE | 2018-02-19 14:07 | CP.PCM.PN ---
Subjective - Date & Time of Evaluation Date of Evaluation: 02/19/18 Time of Evaluation: 14:05 - Subjective Subjective: LFT's high statins on hold HD stable Objective - Vital Signs/Intake and Output Vital Signs (last 24 hours): Temp Pulse Resp BP Pulse Ox 97.6 F 53 L 16 128/52 L 100 02/19/18 08:00 02/19/18 09:00 02/19/18 09:00 02/19/18 08:53 02/19/18 13:17 Intake and Output: 02/19/18 02/19/18 06:59 18:59 Intake Total 1150 150 Output Total 1100 Balance 50 150 - Medications Medications: Current Medications Artificial Tears (Artificial Tears Refresh Celluvisc) 0 ml OU Q12 [facility] Last Admin: 02/19/18 10:26 Dose: 1 drop Aspirin (Aspirin Chewable) 81 mg PO DAILY [facility] Last Admin: 02/19/18 10:27 Dose: 81 mg Heparin Sodium (Porcine) (Heparin) 5,000 units SC Q12 [facility] Last Admin: 02/19/18 10:27 Dose: 5,000 units Sodium Chloride (Sodium Chloride 0.9%) 1,000 mls @ 50 mls/hr IV .Q20H [facility] Last Admin: 02/18/18 20:03 Dose: 50 mls/hr Metoprolol Succinate (Toprol Xl) 25 mg PO DAILY [facility] Last Admin: 02/19/18 10:28 Dose: 25 mg Ticagrelor (Brilinta) 90 mg PO DAILY [facility] Last Admin: 02/19/18 10:27 Dose: 90 mg Timolol Maleate (Timoptic 0.5% [facility]) 1 drop OU BID [facility] Last Admin: 02/19/18 10:28 Dose: 1 drop - Labs Labs: 02/19/18 06:21 02/19/18 06:14 PT 10.2 SECONDS (9.7-12.2) 02/18/18 14:17 INR 0.9 02/18/18 14:17 APTT 26 SECONDS (21-34) 02/18/18 14:17 - Constitutional Appears: Well - Head Exam Head Exam: ATRAUMATIC, NORMAL INSPECTION, NORMOCEPHALIC - Eye Exam Eye Exam: EOMI, Normal appearance, PERRL Pupil Exam: NORMAL ACCOMODATION, PERRL - ENT Exam ENT Exam: Mucous Membranes Moist, Normal Exam - Neck Exam Neck Exam: Full ROM, Normal Inspection. absent: Lymphadenopathy - Respiratory Exam Respiratory Exam: Clear to Ausculation Bilateral, NORMAL BREATHING PATTERN - Cardiovascular Exam Cardiovascular Exam: REGULAR RHYTHM, +S1, +S2. absent: Murmur - GI/Abdominal Exam GI & Abdominal Exam: Soft, Normal Bowel Sounds. absent: Tenderness - Extremities Exam Extremities Exam: Full ROM, Normal Capillary Refill, Normal Inspection. absent: Joint Swelling, Pedal Edema - Back Exam Back Exam: NORMAL INSPECTION - Neurological Exam Neurological Exam: Alert, Awake, CN II-XII Intact, Normal Gait, Oriented x3 - Psychiatric Exam Psychiatric exam: Normal Affect, Normal Mood - Skin Skin Exam: Dry, Intact, Normal Color, Warm Assessment and Plan (1) STEMI (ST elevation myocardial infarction) Assessment & Plan: s/p PCI of occluded LCx plan for staged PCI of LAD as outpt cont DAPT cont BB Status: Acute (2) Transaminitis Status: Acute (3) HTN (hypertension) Status: Acute (4) Dyslipidemia Status: Acute
[2018-02-19] MEDS: metFORMIN 250 mg Tab PO SCH ×2 (16:47→18:32)
[2018-02-19 17:50] LABS: SQUAMOUS EPITHIAL 2 /hpf (0-5); URINE BACTERIA FEW (<OCC); URINE BILIRUBIN NEGATIVE (NEGATIVE); URINE BLOOD 3+ (NEGATIVE); URINE CLARITY Hazy (Clear); URINE COLOR Yellow (YELLOW); URINE GLUCOSE (UA) 3+ mg/dL (Normal); URINE LEUKOCYTE ESTERASE 3+ Leu/uL (Negative); URINE PROTEIN 2+ mg/dL (NEGATIVE); URINE UROBILINOGEN NORMAL mg/dL (0.2-1.0)
--- NOTE | 2018-02-19 22:37 | CP.PCM.HP ---
Present on Admission - Present on Admission Any Indicators Present on Admission: No Past Patient History - Infectious Disease Hx of Infectious Diseases: None - Past Medical History & Family History Past Medical History?: Yes - Past Social History Smoking Status: Never Smoked Alcohol: None Drugs: Denies Home Situation {Lives}: Alone - CARDIAC Hx Hypertension: Yes - PULMONARY Hx Respiratory Disorders: No - NEUROLOGICAL Hx Neurological Disorder: No - HEENT Hx HEENT Problems: Yes Hx Cataracts: Yes Hx Glaucoma: Yes - RENAL Hx Chronic Kidney Disease: No - ENDOCRINE/METABOLIC Hx Endocrine Disorders: Yes Hx Diabetes Mellitus Type 2: Yes - HEMATOLOGICAL/ONCOLOGICAL Hx Blood Disorders: No - INTEGUMENTARY Hx Dermatological Problems: No - MUSCULOSKELETAL/RHEUMATOLOGICAL Hx Musculoskeletal Disorders: No - GASTROINTESTINAL Hx Gastrointestinal Disorders: No - GENITOURINARY/GYNECOLOGICAL Hx Genitourinary Disorders: No - PSYCHIATRIC Hx Depression: No Hx Substance Use: No - SURGICAL HISTORY Hx Surgeries: Yes Hx Cataract Extraction: Yes (left) Other/Comment: RECTAL PROLAPSE + uterus prolapse 2015 - ANESTHESIA Hx Anesthesia: Yes Hx Anesthesia Reactions: No Hx Malignant Hyperthermia: No Meds Home Medications: Home Medication List Medication Instructions Recorded Confirmed Type RX: Aspirin [Aspirin Chewable] 81 mg PO DAILY 30 Days chew 02/21/18 Rx RX: Cephalexin [Keflex] 500 mg PO Q6H 2 Days cap 02/21/18 Rx RX: Metoprolol Succinate XL 25 mg PO DAILY 30 Days tab 02/21/18 Rx [Toprol XL] RX: Ticagrelor [Brilinta] 90 mg PO DAILY 30 Days tab 02/21/18 Rx Allergies/Adverse Reactions: Allergies Allergy/AdvReac Type Severity Reaction Status Date / Time No Known Allergies Allergy Verified 02/18/18 14:09 Results - Vital Signs Recent Vital Signs: Last Vital Signs Temp 98 F 02/19/18 20:00 Pulse 58 L 02/19/18 22:00 Resp 20 02/19/18 22:00 BP 126/53 L 02/19/18 21:53 Pulse Ox 94 L 02/19/18 16:00 - Labs Result Diagrams: 02/20/18 05:45 02/20/18 05:45 Labs: Laboratory Results - last 24 hr 02/18/18 02/19/18 02/19/18 14:10 06:14 06:21 WBC 10.1 RBC 4.33 Hgb 13.0 Hct 37.5 MCV 86.6 MCH 29.9 MCHC 34.6 RDW 13.6 Plt Count 245 MPV 9.2 Neut % (Auto) 78.1 H Lymph % (Auto) 13.9 L [place] % (Auto) 7.1 Eos % (Auto) 0.6 Baso % (Auto) 0.3 Neut # (Auto) 7.9 H Lymph # (Auto) 1.4 [place] # (Auto) 0.7 Eos # (Auto) 0.1 Baso # (Auto) 0.0 Sodium 137 Potassium 3.8 Chloride 104 Carbon Dioxide 26 Anion Gap 11 BUN 14 Creatinine 0.4 L Est GFR ( Amer) > 60 Est GFR (Non-Af Amer) > 60 POC Glucose (mg/dL) 187 H Random Glucose 182 H Calcium 9.1 Phosphorus 3.3 Magnesium 1.7 Total Bilirubin 0.5 AST 148 H D ALT 57 H D Alkaline Phosphatase 88 NT-Pro-B Natriuret Pep Total Protein 6.6 Albumin 3.6 Globulin 3.0 Albumin/Globulin Ratio 1.2 Triglycerides 175 H Cholesterol 142 LDL Cholesterol Direct 67 HDL Cholesterol 42 Urine Color Urine Clarity Urine pH Ur Specific [place] Urine Protein Urine Glucose (UA) Urine Ketones Urine Blood Urine Nitrate Urine Bilirubin Urine Urobilinogen Ur Leukocyte Esterase Urine WBC (Auto) Urine RBC (Auto) Ur Squamous Epith Cells Urine Bacteria 02/19/18 02/19/18 02/19/18 07:30 11:18 16:10 WBC RBC Hgb Hct MCV MCH MCHC RDW Plt Count MPV Neut % (Auto) Lymph % (Auto) [place] % (Auto) Eos % (Auto) Baso % (Auto) Neut # (Auto) Lymph # (Auto) [place] # (Auto) Eos # (Auto) Baso # (Auto) Sodium Potassium Chloride Carbon Dioxide Anion Gap BUN Creatinine Est GFR ( Amer) Est GFR (Non-Af Amer) POC Glucose (mg/dL) 193 H 198 H 255 H Random Glucose Calcium Phosphorus Magnesium Total Bilirubin AST ALT Alkaline Phosphatase NT-Pro-B Natriuret Pep Total Protein Albumin Globulin Albumin/Globulin Ratio Triglycerides Cholesterol LDL Cholesterol Direct HDL Cholesterol Urine Color Urine Clarity Urine pH Ur Specific [place] Urine Protein Urine Glucose (UA) Urine Ketones Urine Blood Urine Nitrate Urine Bilirubin Urine Urobilinogen Ur Leukocyte Esterase Urine WBC (Auto) Urine RBC (Auto) Ur Squamous Epith Cells Urine Bacteria 02/19/18 02/19/18 02/19/18 17:38 17:38 21:15 WBC RBC Hgb Hct MCV MCH MCHC RDW Plt Count MPV Neut % (Auto) Lymph % (Auto) [place] % (Auto) Eos % (Auto) Baso % (Auto) Neut # (Auto) Lymph # (Auto) [place] # (Auto) Eos # (Auto) Baso # (Auto) Sodium Potassium Chloride Carbon Dioxide Anion Gap BUN Creatinine Est GFR ( Amer) Est GFR (Non-Af Amer) POC Glucose (mg/dL) 168 H Random Glucose Calcium Phosphorus Magnesium Total Bilirubin AST ALT Alkaline Phosphatase NT-Pro-B Natriuret Pep 1510 H Total Protein Albumin Globulin Albumin/Globulin Ratio Triglycerides Cholesterol LDL Cholesterol Direct HDL Cholesterol Urine Color Yellow Urine Clarity Hazy Urine pH 6.0 Ur Specific [place] 1.016 Urine Protein 2+ H Urine Glucose (UA) 3+ H Urine Ketones Negative Urine Blood 3+ H Urine Nitrate Negative Urine Bilirubin Negative Urine Urobilinogen Normal Ur Leukocyte Esterase 3+ H Urine WBC (Auto) 319 H Urine RBC (Auto) 256 H Ur Squamous Epith Cells 2 Urine Bacteria Few H
[2018-02-20 06:01] LABS: BASO # 0.1 K/uL (0.0-0.2); BASO % 0.7 % (0.0-2.0); EOS # 0.1 K/uL (0.0-0.7); EOS % 0.8 % (0.0-4.0); LYMPH % 25.2 % (20.0-40.0); MEAN CELL VOLUME 86.5 fL (81.0-99.0); MEAN CORPUSCULAR HEMOGLOBIN 29.8 pg (27.0-31.0); MEAN CORPUSCULAR HGB CONC 34.4 g/dL (33.0-37.0); MEAN PLATELET VOLUME 9.8 fL (7.2-11.7); MONO # 0.7 K/uL (0.0-0.8); MONO % 8.7 % (0.0-10.0); NEUT # 5.2 K/uL (1.8-7.0); NEUT % 64.6 % (50.0-75.0); NRBC % 0.1 % (0.0-2.0); RBC 4.38 Mil/uL (3.80-5.20); RED CELL DISTRIBUTION WIDTH 13.2 % (11.5-14.5); WHITE BLOOD COUNT 8.1 K/uL (4.8-10.8)
--- NOTE | 2018-02-20 06:06 | HP ---
DATE: 02/19/2018 SUBJECTIVE: This is a 77-year-old female with history of diabetes, hyperlipidemia, hypertension who is compliant with her diet, medication, and followup. Prior to admission few minutes ago, she developed left precordial chest pain, pressure-like, associated with diaphoresis, dizziness. The chest pain was 10/10. It was in the center of the chest. No radiation. Along with that, there was diaphoresis and shortness of breath. There is still abdominal pain, nausea, vomiting. There is no history of syncopal episode. There is no history of cough, sore throat, runny nose, but there is dysuria and pelvic pain. There is no history of hematuria. There is family history of ND in the past, and code heart was activated at 1356. PAST MEDICAL HISTORY: Positive for hypertension. SOCIAL HISTORY: Nonsmoker, non-ETOH user. CURRENT MEDICATIONS: She is on Janumet, , Aricept, Captopril, Namenda, Cozaar, glimepiride, omeprazole. PHYSICAL EXAMINATION: GENERAL: An elderly female, in no acute distress. She has chest pain. VITAL SIGNS: BP 126/53, pulse 56, respiratory rate 21, temperature 98. SKIN: No rashes. No bruits. No purpura. HEENT: Atraumatic, normocephalic. Negative pallor. Negative jaundice. Extraocular movements are intact. NECK: Supple. No JVD. CHEST WALL: Bilateral symmetrical expansion. LUNGS: Clear. No rales. No rhonchi. CVS: S1, S2 regular. No heave. No thrill. ABDOMEN: Soft, nontender. Bowel sounds are positive. RECTAL: No masses. No bleed. EXTREMITIES: No clubbing, cyanosis, or edema. CREEL OPERATOR: Awake, alert, and oriented x3. ASSESSMENT: 1. Chest pain, acute coronary syndrome, status post angioplasty. 2. Diabetes. 3. Urinary tract infection. 4. Hyperlipidemia. PLAN: Admit. Detailed orders written. Seen and examined. Marlon Arriaga MD
[2018-02-20 06:33] LABS: ALB/GLOB RATIO 1.1 (1.0-2.1); ALBUMIN 3.7 g/dL (3.5-5.0); ALT/SGPT 47 U/L (9-52); AST/SGOT 83 U/L (14-36); BLOOD UREA NITROGEN 20 mg/dL (7-17); CALCIUM 9.4 mg/dl (8.6-10.4); GFR NON-AFRICAN AMERICAN > 60
[2018-02-20] MEDS: Metoprolol Succinate 25 mg XL Tab PO SCH (09:09)
[2018-02-20] MEDS: Carboxymethylcellulose 1% Ophth Soln OU SCH ×2 (09:10→21:25)
--- NOTE | 2018-02-20 14:00 | CP.PCM.PN ---
<Nelson Duke - Last Filed: 02/20/18 17:36> Subjective - Date & Time of Evaluation Date of Evaluation: 02/20/18 Time of Evaluation: 13:52 - Subjective Subjective: Cardiology Progress Note Nelson Duke, PGY1 note for Dr. Sorensen Patient seen and examined at bedside today. No acute events overnight. Patient is resting comfortably and offers no complaints at this time. Downgraded to tele today. Objective - Vital Signs/Intake and Output Vital Signs (last 24 hours): Temp Pulse Resp BP Pulse Ox 98.1 F 55 L 21 122/58 L 94 L 02/20/18 12:00 02/20/18 12:06 02/20/18 12:06 02/20/18 12:06 02/19/18 16:00 Intake and Output: 02/20/18 02/20/18 06:59 18:59 Intake Total 440 0 Output Total 1150 Balance -710 0 - Medications Medications: Current Medications Artificial Tears (Artificial Tears Refresh Celluvisc) 0 ml OU Q12 [facility] Last Admin: 02/20/18 09:10 Dose: 1 drop Aspirin (Aspirin Chewable) 81 mg PO DAILY [facility] Last Admin: 02/20/18 09:09 Dose: 81 mg Cephalexin Monohydrate (Keflex) 500 mg PO Q6H [facility]; Protocol Last Admin: 02/20/18 12:54 Dose: 500 mg Glimepiride (Amaryl) 1 mg PO DAILY [facility] Last Admin: 02/20/18 09:00 Dose: 1 mg Heparin Sodium (Porcine) (Heparin) 5,000 units SC Q12 [facility] Last Admin: 02/20/18 09:10 Dose: 5,000 units Metformin HCl (Glucophage) 500 mg PO BID [facility] Last Admin: 02/20/18 09:08 Dose: 500 mg Metoprolol Succinate (Toprol Xl) 25 mg PO DAILY [facility] Last Admin: 02/20/18 09:09 Dose: 25 mg Ticagrelor (Brilinta) 90 mg PO DAILY [facility] Last Admin: 02/20/18 09:08 Dose: 90 mg Timolol Maleate (Timoptic 0.5% Ophth Soln) 1 drop OU BID [facility] Last Admin: 02/20/18 09:09 Dose: 1 drop - Labs Labs: 02/20/18 05:45 02/20/18 05:45 PT 10.2 SECONDS (9.7-12.2) 02/18/18 14:17 INR 0.9 02/18/18 14:17 APTT 26 SECONDS (21-34) 02/18/18 14:17 - Constitutional Appears: No Acute Distress - Head Exam Head Exam: ATRAUMATIC, NORMAL INSPECTION - Eye Exam Eye Exam: EOMI Pupil Exam: PERRL - ENT Exam ENT Exam: Mucous Membranes Moist - Respiratory Exam Respiratory Exam: Clear to Ausculation Bilateral. absent: Respiratory Distress - Cardiovascular Exam Cardiovascular Exam: REGULAR RHYTHM, +S1, +S2 - GI/Abdominal Exam GI & Abdominal Exam: Normal Bowel Sounds. absent: Guarding, Rigid - Extremities Exam Extremities Exam: Normal Inspection. absent: Calf Tenderness - Neurological Exam Neurological Exam: Alert, Oriented x3 - Skin Skin Exam: Normal Color, Warm Assessment and Plan - Assessment and Plan (Free Text) Assessment: This is a 77 year old female with PMH of DM2 and HTN presenting to hospital for management s/p PCI of occluded LCx. Plan: S/P STEMI -PCI of occluded LCx on 02/18 -Recommend dual antiplatelet therapy, BB, statin and nitrates -Outpatient staged PCI of LAD -echo pending final read Transaminitis -improved today -hold statins as necessary Further recommendations per Dr. Sorensen <Ryan Sorensen - Last Filed: 02/25/18 15:46> Objective - Vital Signs/Intake and Output Vital Signs (last 24 hours): Temp Pulse Resp BP Pulse Ox 98.1 F 54 L 20 122/68 98 02/21/18 16:00 02/21/18 16:00 02/21/18 16:00 02/21/18 16:00 02/21/18 16:00 - Labs Labs: 02/20/18 05:45 02/20/18 05:45 PT 10.2 SECONDS (9.7-12.2) 02/18/18 14:17 INR 0.9 02/18/18 14:17 APTT 26 SECONDS (21-34) 02/18/18 14:17 Assessment and Plan (1) STEMI (ST elevation myocardial infarction) Status: Acute (2) Transaminitis Status: Acute (3) HTN (hypertension) Status: Acute (4) Dyslipidemia Status: Acute Attending/Attestation - Attestation I have personally seen and examined this patient.: Yes I have fully participated in the care of the patient.: Yes I have reviewed all pertinent clinical information, including history, physical exam and plan: Yes
[2018-02-20] MEDS: (Novolog) Insulin Aspart, Recombinant 100 u/ml 10 ml vial SC SCH ×2 (16:27→21:18)
--- NOTE | 2018-02-21 | CP.PCM.PN ---
Objective - Vital Signs/Intake and Output Vital Signs (last 24 hours): Temp Pulse Resp BP Pulse Ox 97.9 F 61 20 115/57 L 98 02/20/18 16:45 02/20/18 19:06 02/20/18 16:45 02/20/18 19:06 02/20/18 16:45 Intake and Output: 02/20/18 02/21/18 18:59 06:59 Intake Total 900 200 Output Total 1000 Balance -100 200 - Medications Medications: Current Medications Artificial Tears (Artificial Tears Refresh Celluvisc) 0 ml OU Q12 [facility] Last Admin: 02/20/18 21:25 Dose: 1 drop Aspirin (Aspirin Chewable) 81 mg PO DAILY [facility] Last Admin: 02/20/18 09:09 Dose: 81 mg Cephalexin Monohydrate (Keflex) 500 mg PO Q6H [facility]; Protocol Last Admin: 02/20/18 18:03 Dose: 500 mg Glimepiride (Amaryl) 1 mg PO DAILY [facility] Last Admin: 02/20/18 09:00 Dose: 1 mg Heparin Sodium (Porcine) (Heparin) 5,000 units SC Q12 [facility] Last Admin: 02/20/18 21:24 Dose: 5,000 units Insulin Aspart (Novolog) 0 unit SC ACHS [facility]; Protocol Last Admin: 02/20/18 21:18 Dose: Not Given Metformin HCl (Glucophage) 500 mg PO BID [facility] Last Admin: 02/20/18 18:03 Dose: 500 mg Metoprolol Succinate (Toprol Xl) 25 mg PO DAILY [facility] Last Admin: 02/20/18 09:09 Dose: 25 mg Ticagrelor (Brilinta) 90 mg PO DAILY [facility] Last Admin: 02/20/18 09:08 Dose: 90 mg Timolol Maleate (Timoptic 0.5% Oph Soln) 1 drop OU BID [facility] Last Admin: 02/20/18 18:03 Dose: 1 drop - Labs Labs: 02/20/18 05:45 02/20/18 05:45 PT 10.2 SECONDS (9.7-12.2) 02/18/18 14:17 INR 0.9 02/18/18 14:17 APTT 26 SECONDS (21-34) 02/18/18 14:17
[2018-02-21 07:44] VITALS: RESP 20
[2018-02-21] MEDS: (Novolog) Insulin Aspart, Recombinant 100 u/ml 10 ml vial SC SCH ×3 (08:23→16:19)
--- NOTE | 2018-02-21 10:16 | CARD ---
APPROVED REPORT Date of service: 02/20/2018 EXAM: Two-dimensional and M-mode echocardiogram with Doppler and color Doppler. INDICATION Non STEMI RISK FACTORS Hypertension 2D DIMENSIONS IVSd0.9 (0.7-1.1cm)Aortic Root (2D)2.8 (2.0-3.7cm) LVDd5.1 (3.9-5.9cm)PWd1.0 (0.7-1.1cm) LA [id number] (18-58mL)LVDs3.4 (2.5-4.0cm) FS (%) 33.2 %LVEF (%)61.5 (>50%) LVEF (Bethea's)36.02 %IVC0.00 cm M-Mode DIMENSIONS Left Atrium (MM)3.38 (2.5-4.0cm)IVSd1.04 (0.7-1.1cm) Aortic Root2.60 (2.2-3.7cm)LVDd4.33 (4.0-5.6cm) Aortic Cusp Exc.1.63 (1.5-2.0cm)PWd0.85 (0.7-1.1cm) FS (%) 44 %LVDs2.44 (2.0-3.8cm) TAPSE17.01 cmLVEF (%)65 (>50%) Mitral Valve MV E Hwvncyto09.2cm/sMV A Jjuarhkp73.9cm/sE/A ratio2.9 TDI Lateral E' Peak V4.54cm/sMedial E' Peak V4.74cm/sE/Lateral E'21.0 E/Medial E'20.1 Tricuspid Valve TR Peak Neilfqpe045km/sTR Peak Gr.[id number] <Conclusion> poor window. tds. normal size la,lv & ra rv. nomral lv wall motion,thickness,systolic & diastolic function with lvef of 60-65%. aortic valve is probably normal. mild ai. thickened mitral leaflets with mild mr. normal tv & pv. mild pi & tr with mildly elevated pulmonary systolic pressures of 38 mm of hg. normal size aortic root. no pericardial effusion seen.
[2018-02-21] MEDS: Carboxymethylcellulose 1% Ophth Soln OU SCH (10:28)
[2018-02-21] MEDS: Metoprolol Succinate 25 mg XL Tab PO SCH (10:31)
--- NOTE | 2018-02-21 11:49 | CARD ---
APPROVED REPORT Date of service: 02/19/2018 EKG Measurement Heart [id number] <Conclusion> Sinus bradycardia Nonspecific T wave abnormality Abnormal ECG
--- NOTE | 2018-02-21 16:13 | CP.PCM.PN ---
Subjective - Date & Time of Evaluation Date of Evaluation: 02/21/18 Time of Evaluation: 16:13 - Subjective Subjective: PATIENT SEEN AND EXAMINED AT THE BEDSIDE Objective - Vital Signs/Intake and Output Vital Signs (last 24 hours): Temp Pulse Resp BP Pulse Ox 98 F 57 L 20 124/57 L 99 02/21/18 07:00 02/21/18 10:29 02/21/18 07:00 02/21/18 10:29 02/21/18 07:00 Intake and Output: 02/21/18 02/21/18 06:59 18:59 Intake Total 440 Balance 440 - Medications Medications: Current Medications Artificial Tears (Artificial Tears Refresh Celluvisc) 0 ml OU Q12 [facility] Last Admin: 02/21/18 10:28 Dose: 1 drop Aspirin (Aspirin Chewable) 81 mg PO DAILY [facility] Last Admin: 02/21/18 10:30 Dose: 81 mg Cephalexin Monohydrate (Keflex) 500 mg PO Q6H [facility]; Protocol Last Admin: 02/21/18 12:36 Dose: 500 mg Glimepiride (Amaryl) 1 mg PO DAILY [facility] Last Admin: 02/21/18 10:30 Dose: 1 mg Heparin Sodium (Porcine) (Heparin) 5,000 units SC Q12 [facility] Last Admin: 02/21/18 10:32 Dose: 5,000 units Insulin Aspart (Novolog) 0 unit SC ACHS [facility]; Protocol Last Admin: 02/21/18 12:35 Dose: 4 units Metformin HCl (Glucophage) 500 mg PO BID [facility] Last Admin: 02/21/18 10:30 Dose: 500 mg Metoprolol Succinate (Toprol Xl) 25 mg PO DAILY [facility] Last Admin: 02/21/18 10:31 Dose: Not Given Ticagrelor (Brilinta) 90 mg PO DAILY [facility] Last Admin: 02/21/18 10:30 Dose: 90 mg Timolol Maleate (Timoptic 0.5% Oph Soln) 1 drop OU BID [facility] Last Admin: 02/21/18 10:28 Dose: 1 drop - Labs Labs: 02/20/18 05:45 02/20/18 05:45 PT 10.2 SECONDS (9.7-12.2) 02/18/18 14:17 INR 0.9 02/18/18 14:17 APTT 26 SECONDS (21-34) 02/18/18 14:17 Assessment and Plan - Assessment and Plan (Free Text) Assessment: FOLLOW UP WITH DR PAYAN AT HIS OFFICE ---CALL FOR APPOINTMENT FOLLWO UP WITH DR PAN AT HIS OFFICE ---CALL FOR APPOINTMENT ADDRESS YOUR HEART PROCEDURE TO BE FOLLOWED OUT PATIENT PCI OF THE LAD CONTINUE HOME MEDICATION NEW PRESCRIPTION GIVNE ASA 81 MG PO DAILY METOPROLOL 25 MG PO DAILY BRILINTA 90 MCG PO DAILY KEFLEX 500 MG PO EVERY 6H PO FOR 2 DAYS ACTIVITY TOLERATED AND HOME PHYSICAL THERAPY CLL DR PAYAN OR GO TO THE EMERGENCY ROOM IF SYMPTOMS RETURN OR WORSENING
[2018-02-21 16:50] VITALS: BP 122/68; PULSE 54; TEMP 98.1; O2SAT 98
--- NOTE | 2018-02-21 20:58 | CP.PCM.DIS ---
Provider - Provider Date of Admission: 02/18/18 15:46 Attending physician: Marlon Arriaga MD Time Spent in preparation of Discharge (in minutes): 30 Hospital Course - Lab Results Lab Results: Micro Results 02/20/18 Unknown Naris MRSA Culture - Final MRSA NOT DETECTED 02/19/18 17:38 Urine,Clean Catch Urine Culture - Final <10,000 CFU/ML. MULTIPLE SPECIES. PROBABLE CONTAMINATION. Most Recent Lab Values WBC 8.1 K/uL (4.8-10.8) 02/20/18 05:45 RBC 4.38 Mil/uL (3.80-5.20) 02/20/18 05:45 Hgb 13.0 g/dL (11.0-16.0) 02/20/18 05:45 Hct 37.9 % (34.0-47.0) 02/20/18 05:45 MCV 86.5 fL (81.0-99.0) 02/20/18 05:45 MCH 29.8 pg (27.0-31.0) 02/20/18 05:45 MCHC 34.4 g/dL (33.0-37.0) 02/20/18 05:45 RDW 13.2 % (11.5-14.5) 02/20/18 05:45 Plt Count 246 K/uL (130-400) 02/20/18 05:45 MPV 9.8 fL (7.2-11.7) 02/20/18 05:45 Neut % (Auto) 64.6 % (50.0-75.0) 02/20/18 05:45 Lymph % (Auto) 25.2 % (20.0-40.0) 02/20/18 05:45 [place] % (Auto) 8.7 % (0.0-10.0) 02/20/18 05:45 Eos % (Auto) 0.8 % (0.0-4.0) 02/20/18 05:45 Baso % (Auto) 0.7 % (0.0-2.0) 02/20/18 05:45 Neut # (Auto) 5.2 K/uL (1.8-7.0) 02/20/18 05:45 Lymph # (Auto) 2.0 K/uL (1.0-4.3) 02/20/18 05:45 [place] # (Auto) 0.7 K/uL (0.0-0.8) 02/20/18 05:45 Eos # (Auto) 0.1 K/uL (0.0-0.7) 02/20/18 05:45 Baso # (Auto) 0.1 K/uL (0.0-0.2) 02/20/18 05:45 PT 10.2 SECONDS (9.7-12.2) 02/18/18 14:17 INR 0.9 02/18/18 14:17 APTT 26 SECONDS (21-34) 02/18/18 14:17 Sodium 140 mmol/L (132-148) 02/20/18 05:45 Potassium 4.0 mmol/L (3.6-5.2) 02/20/18 05:45 Chloride 106 mmol/L (98-107) 02/20/18 05:45 Carbon Dioxide 27 mmol/L (22-30) 02/20/18 05:45 Anion Gap 11 (10-20) 02/20/18 05:45 BUN 20 mg/dL (7-17) H 02/20/18 05:45 Creatinine 0.5 mg/dL (0.7-1.2) L 02/20/18 05:45 Est GFR ( Amer) > 60 02/20/18 05:45 Est GFR (Non-Af Amer) > 60 02/20/18 05:45 POC Glucose (mg/dL) 120 mg/dL (65-110) H 02/21/18 16:02 Random Glucose 151 mg/dL (65-105) H 02/20/18 05:45 Calcium 9.4 mg/dl (8.6-10.4) 02/20/18 05:45 Phosphorus 4.3 mg/dL (2.5-4.5) 02/20/18 05:45 Magnesium 1.8 mg/dL (1.6-2.3) 02/20/18 05:45 Total Bilirubin 0.4 mg/dL (0.2-1.3) 02/20/18 05:45 AST 83 U/L (14-36) H D 02/20/18 05:45 ALT 47 U/L (9-52) 02/20/18 05:45 Alkaline Phosphatase 82 U/L (38-126) 02/20/18 05:45 Troponin I < 0.0120 ng/mL (0.00-0.120) 02/18/18 14:10 NT-Pro-B Natriuret Pep 1510 pg/mL (0-900) H 02/19/18 17:38 Total Protein 6.9 g/dL (6.3-8.3) 02/20/18 05:45 Albumin 3.7 g/dL (3.5-5.0) 02/20/18 05:45 Globulin 3.2 gm/dL (2.2-3.9) 02/20/18 05:45 Albumin/Globulin Ratio 1.1 (1.0-2.1) 02/20/18 05:45 Triglycerides 175 mg/dL (0-149) H 02/19/18 06:14 Cholesterol 142 mg/dL (0-199) 02/19/18 06:14 LDL Cholesterol Direct 67 mg/dL (0-129) 02/19/18 06:14 HDL Cholesterol 42 mg/dL (30-70) 02/19/18 06:14 Urine Color Yellow (YELLOW) 02/19/18 17:38 Urine Clarity Hazy (Clear) 02/19/18 17:38 Urine pH 6.0 (5.0-8.0) 02/19/18 17:38 Ur Specific [place] 1.016 (1.003-1.030) 02/19/18 17:38 Urine Protein 2+ mg/dL (NEGATIVE) H 02/19/18 17:38 Urine Glucose (UA) 3+ mg/dL (Normal) H 02/19/18 17:38 Urine Ketones Negative mg/dL (NEGATIVE) 02/19/18 17:38 Urine Blood 3+ (NEGATIVE) H 02/19/18 17:38 Urine Nitrate Negative (NEGATIVE) 02/19/18 17:38 Urine Bilirubin Negative (NEGATIVE) 02/19/18 17:38 Urine Urobilinogen Normal mg/dL (0.2-1.0) 02/19/18 17:38 Ur Leukocyte Esterase 3+ [place]/uL (Negative) H 02/19/18 17:38 Urine WBC (Auto) 319 /hpf (0-5) H 02/19/18 17:38 Urine RBC (Auto) 256 /hpf (0-3) H 02/19/18 17:38 Ur Squamous Epith Cells 2 /hpf (0-5) 02/19/18 17:38 Urine Bacteria Few (<OCC) H 02/19/18 17:38 Blood Type O POSITIVE 02/18/18 14:09 Antibody Screen Negative 02/18/18 14:09 Discharge Exam - Head Exam Head Exam: ATRAUMATIC, NORMAL INSPECTION Discharge Plan - Discharge Medications Prescriptions: RX: Aspirin [Aspirin Chewable] 81 mg PO DAILY 30 Days chew RX: Ticagrelor [Brilinta] 90 mg PO DAILY 30 Days tab RX: Cephalexin [Keflex] 500 mg PO Q6H 2 Days cap RX: Metoprolol Succinate XL [Toprol XL] 25 mg PO DAILY 30 Days tab - Follow Up Plan Condition: GOOD Disposition: HOME/ ROUTINE Instructions: Heart Attack (DC), Low Salt Diet, Hypertension (DC) Additional Instructions: FOLLOW UP WITH DR ARRIAGA AT HIS OFFICE ---CALL FOR APPOINTMENT FOLLWO UP WITH DR SORENSEN AT HIS OFFICE ---CALL FOR APPOINTMENT ADDRESS YOUR HEART PROCEDURE TO BE FOLLOWED OUT PATIENT PCI OF THE LAD CONTINUE HOME MEDICATION NEW PRESCRIPTION GIVEN ASA 81 MG PO DAILY METOPROLOL 25 MG PO DAILY BRILINTA 90 MCG PO DAILY KEFLEX 500 MG PO EVERY 6H PO FOR 2 DAYS ACTIVITY TOLERATED AND HOME PHYSICAL THERAPY CALL DR ARRIAGA OR GO TO THE EMERGENCY ROOM IF SYMPTOMS RETURN OR WORSENING Referrals: Ryan Sorensen MD [Staff Provider] - Marlon Arriaga MD [Staff Provider] -
--- NOTE | 2018-02-21 21:23 | PN ---
DATE: 02/21/2018 SUBJECTIVE: The patient, Oskar, is feeling better. She is afebrile. Her liver functions are normal. Water Taxi Driver has seen the patient. PHYSICAL EXAMINATION: VITAL SIGNS: Blood pressure 115/37, pulse 61, respiratory rate 20, temperature 97.9. LUNGS: Clear. CARDIOVASCULAR SYSTEM: S1 and S2 are regular. ABDOMEN: Soft. ASSESSMENT: 1. Coronary artery disease. 2. Diabetes. 3. Urinary tract infection. PLAN: Continue medical management. Follow up with Cardiology and further plan of care per Cardiology. Maroln Arriaga MD
--- NOTE | 2018-02-22 06:38 | DS ---
ADMISSION DIAGNOSIS: Chest pain. DISCHARGE DIAGNOSES: Coronary artery disease, multivessel; diabetes; hypertension; urinary tract infection. HISTORY OF PRESENT ILLNESS: This is a 77-year-old female with history of diabetes, hypertension, hyperlipidemia, came in with chest pain. NE was ruled in, and she underwent cardiac catheterization and angioplasty, and subsequently here for discharge. She is stable. She had a UTI. She is on antibiotics. PHYSICAL EXAMINATION: VITAL SIGNS: Blood pressure 122/68, pulse 54, respiratory rate 20, and temperature 98.1. LABORATORY DATA: Sugars are 120, 146, 118 except higher reading of 302. WBC is 8.1, hemoglobin 13, hematocrit 37.9, platelets 246,000. Chemistry: Sodium 140, potassium 4, chloride 106, bicarb 27, BUN 20, creatinine 0.5. CONDITION UPON DISCHARGE: Stable. She will be followed up as outpatient. Marlon Arriaga MD
== END 2018-02-21 18:09 | disposition home or self-care (01) | DRG 247 ==
LOC: C.ER 14:01 → C.9I 15:46 → UNDOADMIN 15:57 → C.9I 15:57 → C.5S 02-20 17:02
PROVIDERS: ADMIT Internal Medicine; ATTEND Internal Medicine
PROC: 4A023N7 Measurement of Cardiac Sampling and Pressure, Left Heart, Percutaneous Approach (ICD-10-PCS; principal; 2018-02-18)
PROC: 027034Z Dilation of Coronary Artery, One Artery with Drug-eluting Intraluminal Device, Percutaneous Approach (ICD-10-PCS; 2018-02-18)
PROC: B2151ZZ Fluoroscopy of Left Heart using Low Osmolar Contrast (ICD-10-PCS; 2018-02-18)
PROC: B2111ZZ Fluoroscopy of Multiple Coronary Arteries using Low Osmolar Contrast (ICD-10-PCS; 2018-02-18)
DX: I21.19 ST elevation (STEMI) myocardial infarction involving other coronary artery of inferior wall (principal); N39.0 Urinary tract infection, site not specified; I25.10 Atherosclerotic heart disease of native coronary artery without angina pectoris; I10 Essential (primary) hypertension; H40.9 Unspecified glaucoma; F03.90 Unspecified dementia, unspecified severity, without behavioral disturbance, psychotic disturbance, mood disturbance, and anxiety; E78.5 Hyperlipidemia, unspecified; E11.9 Type 2 diabetes mellitus without complications; I25.82 Chronic total occlusion of coronary artery; Z79.4 Long term (current) use of insulin

== ENCOUNTER 2018-07-19 19:31 | Observation (INO) | payer MEDICARE, MEDICAID ==
[2018-07-19 19:31] VITALS: BMI 24.4
[2018-07-19 20:56] LABS: BASO # 0.1 K/uL (0.0-0.2); BASO % 0.8 % (0.0-2.0); EOS # 0.1 K/uL (0.0-0.7); EOS % 1.7 % (0.0-4.0); HEMOGLOBIN 12.4 g/dL (11.0-16.0); LYMPH # 1.7 K/uL (1.0-4.3); LYMPH % 22.7 % (20.0-40.0); MEAN CELL VOLUME 88.5 fL (81.0-99.0); MEAN CORPUSCULAR HEMOGLOBIN 28.9 pg (27.0-31.0); MEAN CORPUSCULAR HGB CONC 32.7 g/dL (33.0-37.0); MONO # 0.4 K/uL (0.0-0.8); MONO % 5.6 % (0.0-10.0); NEUT % 69.2 % (50.0-75.0); RBC 4.27 Mil/uL (3.80-5.20); RED CELL DISTRIBUTION WIDTH 13.6 % (11.5-14.5); WHITE BLOOD COUNT 7.3 K/uL (4.8-10.8)
[2018-07-19 21:09] LABS: ALB/GLOB RATIO 1.3 (1.0-2.1); ALBUMIN 4.2 g/dL (3.5-5.0); ALT/SGPT 20 U/L (9-52); AST/SGOT 25 U/L (14-36); BLOOD UREA NITROGEN 22 mg/dL (7-17); CALCIUM 9.9 mg/dl (8.6-10.4); GFR NON-AFRICAN AMERICAN > 60
[2018-07-19 21:21] LABS: B-TYPE NATRIURETIC PEPTIDE 627 pg/mL (0-900)
--- NOTE | 2018-07-19 21:56 | C.PDOC ---
History Of Present Illness 78 year old female presents to the emergency department with complaints of chest pain. Patient is status-post 2 cardiac stents last Saturday from Dr. Sorensen. Patient reports that she had an onset of chest pain today with associated left shoulder/back pain. Patient reports vomiting today, a well as left shoulder pain/weakness which lasted more than an hour. Patient reports that her symptoms have resolved in the ED. Time Seen by Provider: 07/19/18 20:19 Chief Complaint (Nursing): Upper Extremity Problem/Injury History Per: Patient, Family (daughter) Onset/Duration Of Symptoms: Hrs Current Symptoms Are (Timing): Better Quality: "Pain" Associated Symptoms: Diaphoresis Past Medical History Reviewed: Historical Data, Nursing Documentation, Vital Signs Vital Signs: Last Vital Signs Temp 97.5 F L 07/19/18 19:46 Pulse 89 07/19/18 19:46 Resp 16 07/19/18 19:46 BP 154/77 H 07/19/18 19:46 Pulse Ox 99 07/19/18 19:46 - Medical History PMH: Diabetes, HTN Denies: Depression, Chronic Kidney Disease Surgical History: No Surg Hx - [facility] Procedures DILATION OF 1 COR ART WITH DRUG-ELUT INTRA, PERC APPROACH (02/18/18) FLUOROSCOPY OF LEFT HEART USING LOW OSMOLAR CONTRAST (02/18/18) FLUOROSCOPY OF MULT COR ART USING L OSM CONTRAST (02/18/18) MEASURE OF CARDIAC SAMPL & PRESSURE, L HEART, PERC APPROACH (02/18/18) Family History: States: No Known Family Hx - Social History Hx Alcohol Use: No Hx Substance Use: No - Immunization History Hx Tetanus Toxoid Vaccination: No Hx Influenza Vaccination: Yes Hx Pneumococcal Vaccination: No Review Of Systems Except As Marked, All Systems Reviewed And Found Negative. Constitutional: Positive for: Other (sweats). Negative for: Fever, Chills Cardiovascular: Positive for: Chest Pain Gastrointestinal: Positive for: Vomiting Musculoskeletal: Positive for: Shoulder Pain, Back Pain Physical Exam - Physical Exam Appears: Non-toxic, No Acute Distress Skin: Normal Color, Warm, Dry Head: Atraumatic, Normacephalic Eye(s): bilateral: Normal Inspection, PERRL, EOMI Nose: Normal Oral Mucosa: Moist Neck: Normal, Supple Chest: Symmetrical, No Tenderness Cardiovascular: Rhythm Regular, No Murmur Respiratory: Normal Breath Sounds, No Rales, No Rhonchi, No Wheezing Gastrointestinal/Abdominal: Soft, No Tenderness, No Guarding, No Rebound Extremity: Normal ROM Neurological/Psych: Oriented x3, Normal Speech, Normal Cognition ED Course And Treatment - Laboratory Results Result Diagrams: 07/19/18 20:50 07/19/18 20:50 Lab Results: Troponin I < 0.0120 ng/mL (0.00-0.120) 07/19/18 20:50 NT-Pro-B Natriuret Pep 627 pg/mL (0-900) 07/19/18 20:50 Total Bilirubin 0.3 mg/dL (0.2-1.3) 07/19/18 20:50 AST 25 U/L (14-36) 07/19/18 20:50 ALT 20 U/L (9-52) 07/19/18 20:50 Alkaline Phosphatase 72 U/L (38-126) 07/19/18 20:50 Total Protein 7.4 g/dL (6.3-8.3) 07/19/18 20:50 Albumin 4.2 g/dL (3.5-5.0) 07/19/18 20:50 Globulin 3.2 gm/dL (2.2-3.9) 07/19/18 20:50 Albumin/Globulin Ratio 1.3 (1.0-2.1) 07/19/18 20:50 O2 Sat by Pulse Oximetry: 99 (RA) Pulse Ox Interpretation: Normal Interpretation Of Abnormal: normal sinus rhythm at 68bpm, Q waves in inferior leads. Medical Decision Making Medical Decision Making: Plan: EKG Chemistry CBC CXR Spoke to Dr. Sorensen, states to admit the patient to Dr. Arriaga. Disposition Counseled Patient/Family Regarding: Studies Performed, Diagnosis - Disposition Disposition: HOSPITALIZED Disposition Time: 22:04 Condition: STABLE Forms: [facility] (Maori) - POA Present On Arrival: None - Clinical Impression Clinical Impression: Shoulder pain, left, Upper back pain on left side - Scribe Statement The provider has reviewed the documentation as recorded by the Scribe (Vinay Finn) Provider Attestation: All medical record entries made by the Scribe were at my direction and personally dictated by me. I have reviewed the chart and agree that the record accurately reflects my personal performance of the history, physical exam, medical decision making, and the department course for this patient. I have also personally directed, reviewed, and agree with the discharge instructions and disposition.
[2018-07-20 03:34] LABS: CK-MB 0.69 ng/mL (0.0-3.38); TROPONIN I 0.014 ng/mL (0.00-0.120)
[2018-07-20] MEDS: (Novolin R) Insulin Human Regular 100 units/ml vial SC SCH ×4 (07:41→21:13)
[2018-07-20] MEDS: Metoprolol Succinate 25 mg XL Tab PO SCH (09:43)
[2018-07-20] MEDS: Pantoprazole 20 mg EC Tab PO SCH (09:43)
[2018-07-20] MEDS: Enoxaparin 40 mg Syringe SC SCH (09:44)
--- NOTE | 2018-07-20 14:54 | RAD ---
Date of service: 07/19/2018 PROCEDURE: CHEST RADIOGRAPH, 1 VIEW HISTORY: chest pain COMPARISON: 02/19/2018. FINDINGS: LUNGS: Clear. PLEURA: No pneumothorax or pleural fluid seen. CARDIOVASCULAR: No aortic atherosclerotic calcification present. Normal. OSSEOUS STRUCTURES: No significant abnormalities. VISUALIZED UPPER ABDOMEN: Normal. OTHER FINDINGS: None. IMPRESSION: No active disease.
--- NOTE | 2018-07-20 22:47 | CP.PCM.HP ---
Present on Admission - Present on Admission Any Indicators Present on Admission: No Past Patient History - Infectious Disease Hx of Infectious Diseases: None - Past Medical History & Family History Past Medical History?: Yes - Past Social History Smoking Status: Never Smoked - CARDIAC Hx Hypertension: Yes - PULMONARY Hx Respiratory Disorders: No - NEUROLOGICAL Hx Neurological Disorder: No - HEENT Hx HEENT Problems: Yes Hx Cataracts: Yes Hx Glaucoma: Yes - RENAL Hx Chronic Kidney Disease: No - ENDOCRINE/METABOLIC Hx Endocrine Disorders: Yes Hx Diabetes Mellitus Type 2: Yes - HEMATOLOGICAL/ONCOLOGICAL Hx Blood Disorders: No - INTEGUMENTARY Hx Dermatological Problems: No - MUSCULOSKELETAL/RHEUMATOLOGICAL Hx Musculoskeletal Disorders: No - GASTROINTESTINAL Hx Gastrointestinal Disorders: No - GENITOURINARY/GYNECOLOGICAL Hx Genitourinary Disorders: No - PSYCHIATRIC Hx Depression: No Hx Substance Use: No - SURGICAL HISTORY Hx Cardiac Catheterization: Yes (1 stent placement) - ANESTHESIA Hx Anesthesia: Yes Hx Anesthesia Reactions: No Hx Malignant Hyperthermia: No Meds Allergies/Adverse Reactions: Allergies Allergy/AdvReac Type Severity Reaction Status Date / Time No Known Allergies Allergy Verified 07/19/18 19:51 Results - Vital Signs Recent Vital Signs: Last Vital Signs Temp 98.3 F 07/20/18 15:00 Pulse 57 L 07/20/18 15:58 Resp 20 07/20/18 15:00 BP 148/72 07/20/18 15:00 Pulse Ox 96 07/20/18 15:58 - Labs Result Diagrams: 07/19/18 20:50 07/19/18 20:50 Labs: Laboratory Results - last 24 hr 07/20/18 07/20/18 07/20/18 03:05 05:48 10:59 POC Glucose (mg/dL) 165 H 190 H Total Creatine Kinase 31 CK-MB (Mass) 0.69 Troponin I 0.0140 07/20/18 07/20/18 16:07 20:55 POC Glucose (mg/dL) 83 178 H Total Creatine Kinase CK-MB (Mass) Troponin I
[2018-07-20 23:46] LABS: CK-MB 0.51 ng/mL (0.0-3.38)
--- NOTE | 2018-07-21 07:44 | CP.PCM.CON ---
History of Present Illness - History of Present Illness History of Present Illness: Salo Givens PGY1, Cardio consult note for Dr Sorensen Pt is a 78 yo non smoker female with a PMH of DM, dementia, and HTN who presented to the emergency department complaining of chest pain. Pt had a stent placed in the left circ last Saturday. Pt reports pain in her left arm, left shoulder but denies chest/ jaw pain. Pt reports feeling "sweaty" and became worried she was having a "heart attack". Pt states she checked her glucose at home which was 68 at the time of this episode. Pt reports daily compliance with her medications. Past Patient History - Infectious Disease Hx of Infectious Diseases: None - Past Medical History & Family History Past Medical History?: Yes - Past Social History Smoking Status: Never Smoked - CARDIAC Hx Hypertension: Yes - PULMONARY Hx Respiratory Disorders: No - NEUROLOGICAL Hx Neurological Disorder: No - HEENT Hx HEENT Problems: Yes Hx Cataracts: Yes Hx Glaucoma: Yes - RENAL Hx Chronic Kidney Disease: No - ENDOCRINE/METABOLIC Hx Endocrine Disorders: Yes Hx Diabetes Mellitus Type 2: Yes - HEMATOLOGICAL/ONCOLOGICAL Hx Blood Disorders: No - INTEGUMENTARY Hx Dermatological Problems: No - MUSCULOSKELETAL/RHEUMATOLOGICAL Hx Musculoskeletal Disorders: No - GASTROINTESTINAL Hx Gastrointestinal Disorders: No - GENITOURINARY/GYNECOLOGICAL Hx Genitourinary Disorders: No - PSYCHIATRIC Hx Depression: No Hx Substance Use: No - SURGICAL HISTORY Hx Cardiac Catheterization: Yes (1 stent placement) - ANESTHESIA Hx Anesthesia: Yes Hx Anesthesia Reactions: No Hx Malignant Hyperthermia: No Meds Allergies/Adverse Reactions: Allergies Allergy/AdvReac Type Severity Reaction Status Date / Time No Known Allergies Allergy Verified 07/19/18 19:51 - Medications Medications: Current Medications Aspirin (Aspirin Chewable) 81 mg PO DAILY [facility] Last Admin: 07/20/18 09:43 Dose: 81 mg Donepezil HCl (Aricept) 10 mg PO [facility] Last Admin: 07/20/18 21:16 Dose: 10 mg Enoxaparin Sodium (Lovenox) 40 mg SC DAILY [facility] Last Admin: 07/20/18 09:44 Dose: 40 mg Glimepiride (Amaryl) 1 mg PO DAILY [facility] Last Admin: 07/20/18 09:42 Dose: 1 mg Insulin Human Regular (Novolin R) 0 unit SC [facility]; Protocol Last Admin: 07/20/18 21:13 Dose: Not Given Memantine (Namenda) 10 mg PO DAILY [facility] Last Admin: 07/20/18 09:43 Dose: 10 mg [facility] Last Admin: 07/20/18 17:37 Dose: Not Given Metoprolol Succinate (Toprol Xl) 25 mg PO DAILY [facility] Last Admin: 07/20/18 09:43 Dose: 25 mg Pantoprazole Sodium (Protonix Ec Tab) 20 mg PO DAILY [facility] Last Admin: 07/20/18 09:43 Dose: 20 mg Sitagliptin Phosphate (Januvia) 100 mg PO DAILY [facility] Last Admin: 07/20/18 09:44 Dose: 100 mg Ticagrelor (Brilinta) 90 mg PO DAILY [facility] Last Admin: 07/20/18 09:42 Dose: 90 mg Physical Exam - Constitutional Appears: No Acute Distress - Head Exam Head Exam: ATRAUMATIC, NORMOCEPHALIC - Eye Exam Eye Exam: EOMI - ENT Exam ENT Exam: Mucous Membranes Moist - Neck Exam Neck exam: Positive for: Full Rom - Respiratory Exam Respiratory Exam: Clear to Auscultation Bilateral, NORMAL BREATHING PATTERN. absent: Accessory Muscle Use, Respiratory Distress - Cardiovascular Exam Cardiovascular Exam: RRR, +S1, +S2. absent: Diastolic murmur, Systolic Murmur - GI/Abdominal Exam GI & Abdominal Exam: Normal Bowel Sounds, Soft - Extremities Exam Extremities exam: Positive for: full ROM, pedal pulses present. Negative for: calf tenderness, pedal edema - Neurological Exam Neurological exam: Alert, Oriented x3 - Psychiatric Exam Psychiatric exam: Normal Affect, Normal Mood - Skin Skin Exam: Dry, Normal Color, Warm Results - Vital Signs Recent Vital Signs: Last Vital Signs Temp 97.7 F 07/20/18 23:17 Pulse 53 L 07/20/18 23:17 Resp 18 07/20/18 23:17 BP 144/65 07/20/18 23:17 Pulse Ox 96 07/20/18 23:17 - Labs Result Diagrams: 07/21/18 11:26 07/21/18 11:26 Labs: Laboratory Results - last 24 hr 07/20/18 07/20/18 07/20/18 10:59 16:07 20:55 POC Glucose (mg/dL) 190 H 83 178 H Total Creatine Kinase CK-MB (Mass) Troponin I 07/20/18 07/21/18 23:18 06:37 POC Glucose (mg/dL) 148 H Total Creatine Kinase 24 L CK-MB (Mass) 0.51 Troponin I < 0.0120 Assessment & Plan - Assessment and Plan (Free Text) Assessment: Angina, rule out ACS non smoker female DM dementia HTN Plan: Angina, rule out ACS non smoker DM HTN Trop 07/19 x3 negative HA1C follow up BNP 07/19 627 EKG 07/19/[address] or T wave abnormalities Medications ASA glimepiride metoprolol lorri botello Thank you for allowing us to participate in the care of this patient. Cardio is signing off at this time. Pt seen, examined, assessment and plan discussed with Dr Edu Givens PGY1, Internal Medicine Resident - Date & Time Date: 07/21/18 Time: 07:00
[2018-07-21] MEDS: (Novolin R) Insulin Human Regular 100 units/ml vial SC SCH ×3 (07:55→16:19)
[2018-07-21 08:23] VITALS: RESP 20
[2018-07-21 09:02] VITALS: PULSE 58
[2018-07-21] MEDS: Metoprolol Succinate 25 mg XL Tab PO SCH (10:13)
[2018-07-21] MEDS: Enoxaparin 40 mg Syringe SC SCH (10:15)
[2018-07-21] MEDS: Pantoprazole 20 mg EC Tab PO SCH (10:24)
[2018-07-21 11:42] LABS: BASO # 0.1 K/uL (0.0-0.2); BASO % 0.9 % (0.0-2.0); EOS # 0.1 K/uL (0.0-0.7); EOS % 2.4 % (0.0-4.0); LYMPH # 1.7 K/uL (1.0-4.3); LYMPH % 27.3 % (20.0-40.0); MEAN CORPUSCULAR HEMOGLOBIN 29.7 pg (27.0-31.0); MEAN CORPUSCULAR HGB CONC 33.4 g/dL (33.0-37.0); MEAN PLATELET VOLUME 9.6 fL (7.2-11.7); MONO # 0.5 K/uL (0.0-0.8); MONO % 8.4 % (0.0-10.0); NEUT # 3.7 K/uL (1.8-7.0); RBC 4.38 Mil/uL (3.80-5.20); RED CELL DISTRIBUTION WIDTH 13.7 % (11.5-14.5)
[2018-07-21 11:59] LABS: ALB/GLOB RATIO 1.4 (1.0-2.1); ALT/SGPT 20 U/L (9-52); AST/SGOT 34 U/L (14-36); BLOOD UREA NITROGEN 17 mg/dL (7-17); CALCIUM 9.9 mg/dl (8.6-10.4); GFR NON-AFRICAN AMERICAN > 60
[2018-07-21 16:10] VITALS: BP 144/78; TEMP 97.9
[2018-07-21] MEDS ORDERED: Influenza Vaccine 60 mcg/0.5 mL SYR (4YR UP) IM ONE (18:00)
[2018-07-21 18:15] VITALS: O2SAT 98
--- NOTE | 2018-07-22 02:56 | CP.PCM.DIS ---
Provider - Provider Date of Admission: 07/19/18 22:06 Attending physician: Marlon Arriaga MD Consults: 07/19/18 22:20 Cardiology Consult Routine Comment: Consulting Provider: Ryan Sorensen Consulting Physician: Ryan Sorensen Reason for Consult: cad Time Spent in preparation of Discharge (in minutes): 30 Hospital Course - Lab Results Lab Results: Most Recent Lab Values WBC 6.0 K/uL (4.8-10.8) 07/21/18 11:26 RBC 4.38 Mil/uL (3.80-5.20) 07/21/18 11:26 Hgb 13.0 g/dL (11.0-16.0) 07/21/18 11:26 Hct 38.9 % (34.0-47.0) 07/21/18 11:26 MCV 89.0 fL (81.0-99.0) 07/21/18 11:26 MCH 29.7 pg (27.0-31.0) 07/21/18 11:26 MCHC 33.4 g/dL (33.0-37.0) 07/21/18 11:26 RDW 13.7 % (11.5-14.5) 07/21/18 11:26 Plt Count 292 K/uL (130-400) 07/21/18 11:26 MPV 9.6 fL (7.2-11.7) 07/21/18 11:26 Neut % (Auto) 61.0 % (50.0-75.0) 07/21/18 11:26 Lymph % (Auto) 27.3 % (20.0-40.0) 07/21/18 11:26 [place] % (Auto) 8.4 % (0.0-10.0) 07/21/18 11:26 Eos % (Auto) 2.4 % (0.0-4.0) 07/21/18 11:26 Baso % (Auto) 0.9 % (0.0-2.0) 07/21/18 11:26 Neut # (Auto) 3.7 K/uL (1.8-7.0) 07/21/18 11:26 Lymph # (Auto) 1.7 K/uL (1.0-4.3) 07/21/18 11:26 [place] # (Auto) 0.5 K/uL (0.0-0.8) 07/21/18 11:26 Eos # (Auto) 0.1 K/uL (0.0-0.7) 07/21/18 11:26 Baso # (Auto) 0.1 K/uL (0.0-0.2) 07/21/18 11:26 Sodium 135 mmol/L (132-148) 07/21/18 11:26 Potassium 3.9 mmol/L (3.6-5.2) 07/21/18 11:26 Chloride 100 mmol/L (98-107) 07/21/18 11:26 Carbon Dioxide 27 mmol/L (22-30) 07/21/18 11:26 Anion Gap 12 (10-20) 07/21/18 11:26 BUN 17 mg/dL (7-17) 07/21/18 11:26 Creatinine 0.6 mg/dL (0.7-1.2) L 07/21/18 11:26 Est GFR ( Amer) > 60 07/21/18 11:26 Est GFR (Non-Af Amer) > 60 07/21/18 11:26 POC Glucose (mg/dL) 93 mg/dL (65-110) 07/21/18 15:51 Random Glucose 223 mg/dL (65-105) H 07/21/18 11:26 Hemoglobin A1c 6.9 % (4.2-6.5) H 07/21/18 11:26 Calcium 9.9 mg/dl (8.6-10.4) 07/21/18 11:26 Total Bilirubin 0.2 mg/dL (0.2-1.3) 07/21/18 11:26 AST 34 U/L (14-36) 07/21/18 11:26 ALT 20 U/L (9-52) 07/21/18 11:26 Alkaline Phosphatase 80 U/L (38-126) 07/21/18 11:26 Total Creatine Kinase 24 U/L (30-135) L 07/20/18 23:18 CK-MB (Mass) 0.51 ng/mL (0.0-3.38) 07/20/18 23:18 Troponin I < 0.0120 ng/mL (0.00-0.120) 07/20/18 23:18 NT-Pro-B Natriuret Pep 627 pg/mL (0-900) 07/19/18 20:50 Total Protein 6.9 g/dL (6.3-8.3) 07/21/18 11:26 Albumin 4.0 g/dL (3.5-5.0) 07/21/18 11:26 Globulin 2.8 gm/dL (2.2-3.9) 07/21/18 11:26 Albumin/Globulin Ratio 1.4 (1.0-2.1) 07/21/18 11:26 Discharge Exam - Head Exam Head Exam: ATRAUMATIC, NORMOCEPHALIC Discharge Plan - Follow Up Plan Condition: STABLE Disposition: HOME/ ROUTINE Instructions: Upper Back Pain (DC), Shoulder Pain (DC) Additional Instructions: FOLLOW UP WITH DR ARRIAGA IN HIS OFFICE -----CALL FOR APPOINTMENT FOLLOW UP WITH DR SORENSEN IN HIS OFFICE ------CALL FOR APPOINTMENT CONTINUE HOME MEDICATION ACTIVITY TOLERATED CALL DR ARRIAGA OR GO TO THE EMERGENCY ROOM IF SYMPTOM RETURN OR WORSENING Follow up with Dr. Aburto in one week. Referrals: Ryan Sorensen MD [Staff Provider] - Marlon Arriaga MD [Staff Provider] -
[2018-07-22] MEDS ORDERED: Influenza Vaccine 60 mcg/0.5 mL SYR (4YR UP) IM ONE (10:00)
--- NOTE | 2018-07-22 14:42 | HP ---
CHIEF COMPLAINT: Chest pain. HISTORY OF PRESENT ILLNESS: This is a 78-year-old female well known to me with history of hypertension; hyperlipidemia; history of coronary artery disease, status post stents. Two stents were placed by Dr. Sorensen a week ago. She is compliant with her diet, medication and followup. She developed some left precordial chest pain, acute onset, associated with left shoulder and back pain. Along with that she vomited once on the day of admission. Pain in the left shoulder is worse with movement. She denies any diaphoresis, dizziness. She denies any cough, sore throat, or runny nose. She denies any history of polyuria or polydipsia. She also has history of type 2 diabetes and she is on medication, she is compliant. Present chest pain was not associated with diaphoresis or dizziness. Chest pain was persistent. It was not associated with dizziness. She has no history of cough, sore throat, or runny nose. There is no history of dyspepsia. There is no history of polyuria, polydipsia, or polyphagia. There is no history of hematuria or pyuria. PAST MEDICAL HISTORY: Type 2 diabetes; hypertension; hyperlipidemia; coronary artery disease, status post angioplasty; dementia. SOCIAL HISTORY: Nonsmoker, nondrinker, non-EtOH user. CURRENT MEDICATIONS: She is on Brilinta, Janumet, omeprazole, Toprol, Namenda, Glynase, glimepiride, Aricept, aspirin. PHYSICAL EXAMINATION: GENERAL: An elderly female, in no acute distress. She has chest pain at the time I examined the patient. VITAL SIGNS: Blood pressure 148/72, pulse 85, respiratory rate 20, and temperature 98.3. SKIN: Senile turgor. No bruises. No purpura. No petechiae. No ecchymosis. HEENT: Atraumatic, normocephalic. Negative pallor. Negative jaundice. Extraocular movements are intact. NECK: Supple. No JVD. No lymph nodes. No thyromegaly. CHEST WALL: Bilateral symmetrical expansion. LUNGS: Clear. No rale. No rhonchi. CARDIOVASCULAR SYSTEM: No heaves, no thrills. S1, S2. Regular. ABDOMEN: Soft, nontender. Bowel sounds are positive. EXTREMITIES: No clubbing, cyanosis or edema. CENTRAL NERVOUS SYSTEM: Alert, awake, and oriented x3. Cranial nerves II through XII are normal. Power 5/5 x4. Plantars are downgoing. ASSESSMENT: 1. Chest pain rule, out myocardial infarction. 2. Diabetes. 3. Hypertension. PLAN: Admit. Detailed orders are written. Seen and examined. Marlon Arriaga MD
--- NOTE | 2018-07-22 19:59 | CARD ---
APPROVED REPORT Date of service: 07/19/2018 EKG Measurement Heart [id number] <Conclusion> Normal sinus rhythm Inferior infarct, age undetermined Abnormal ECG
== END 2018-07-21 19:14 | disposition home or self-care (01) ==
LOC: C.ER 19:31 → C.9E 22:06 → C.5S 22:26 → C.9E 22:51 → C.5S 23:05
PROVIDERS: ADMIT Internal Medicine; ATTEND Internal Medicine
DX: I20.9 Angina pectoris, unspecified (principal); I10 Essential (primary) hypertension; H40.9 Unspecified glaucoma; F03.90 Unspecified dementia, unspecified severity, without behavioral disturbance, psychotic disturbance, mood disturbance, and anxiety; E11.9 Type 2 diabetes mellitus without complications; Z95.5 Presence of coronary angioplasty implant and graft; M25.512 Pain in left shoulder
CPT/HCPCS: 36415; 71045; 80053; 82948; 83036; 83880; 84484; 85025; 93005; 99285; G0378; J1650